=== PATIENT | female | born 1935 | race Caucasian/White ===

== ENCOUNTER 2017-04-09 08:55 | Emergency (ER) | payer MEDICARE, OTHER, SELFPAY ==
[2017-04-09 08:56] VITALS: BP 195/78; PULSE 99; RESP 17; TEMP 36.7; O2SAT 94; BMI 34.2
--- NOTE | 2017-04-09 09:08 | RAD_ITS ---
STUDY: X-RAY - LEFT FOOT CLINICAL: Female, 82 years old. Pain, injury TECHNIQUE: 3 view(s) of the foot. COMPARISON: Prior comparison studies are not available for review at this time. FINDINGS: There is a plantar calcaneal spur. Normal visualized subtalar, talonavicular, calcaneocuboid, tarsal and tarsometatarsal articulations. Closed comminuted mid distal fifth metatarsal fracture. Healed second metatarsal fracture. Normal metatarsophalangeal joint of the great toe. There is a bipartite tibial sesamoid. Normal interphalangeal joint of the great toe. Normal phalanges of the great toe. Normal second through fifth metatarsophalangeal joints. Normal interphalangeal joints and phalanges of the lesser toes. Mild lateral soft tissue swelling. RAD/Foot min 3 Views IMPRESSION: Closed comminuted fifth metatarsal fracture. Old healed second metatarsal fracture. Electronically Signed: Steven Younger DO at 9:32 EST , Service support ,
--- NOTE | 2017-04-09 09:30 | ED.VISSUMM ---
- ER Visit Summary Date of Service: 04/09/17 Chief Complaint: Left foot pain History of Present Illness: The patient is a [address] Rivera. She reports that she tripped over stuff in her room this morning and injured her left foot. She has pain Zeta 10 with walking 5 out of 10 at rest. She denies any other injuries. No blow to the head or loss of consciousness. She is not on any blood thinners. No neck, shoulder, wrist, hip, or back pain. Physical Examination: Vitals: Stable. Afebrile. Neck: No vertebral tenderness. Full ROM without difficulty. Cleared by NEXUS criteria. Back: No vertebral tenderness. General: A&O x 3. NAD. Cardiovascular exam: Regular rate and rhythm, no murmur, rub or gallop. Respiratory exam: Chest nontender. No crepitus. Clear to auscultation bilaterally. No wheezes or stridor. Abdominal exam: Soft, nontender, nondistended, normal bowel sounds. No pain in RUQ or LUQ specifically. No peritoneal signs. Extremity: Moderate tenderness palpation over the lateral portion of her foot. She has a 2+ dorsalis pedis pulse. Test Results: X-ray shows a proximal third fifth metatarsal fracture with minimal displacement. Emergency Department Course and Treatment: She refused pain medications. I do not think that she is a good candidate for splint and crutches. She was discussed with Dr. Awad and placed in a walking boot. Treatment Plan: She will be discharged with [place] and Colace. Instructed to follow-up with Dr. Awad in 1 week for another exam. Return to the emergency department for any worsening symptoms. Disposition: To home in improved and stable condition. Impression: 1. Left fifth metatarsal fracture. This note was generated with [employer] dictation software. It may contain incorrect words, spelling, and punctuation that were not noted in review of the chart prior to signing ED Disposition - Plan for ED Patient: Chief Complaint: Lower Extremity Injury Instructions: ED Fx Foot Prescriptions: Hydrocodone Bitart/Apap 5-325 [[place] 5/325] 1 - 2 tablet PO Q4H PRN PRN #20 tablet PRN Reason: Pain Docusate Sodium [Colace] 100 mg PO DAILY #20 capsule Walker [Ultra-Light Rollator] 1 each MC DAILY #1 each Referrals: Diony Awad DPM [STAFF PHYSICIAN] - 1 Week
--- NOTE | 2017-04-09 09:33 | ED.DCSUM_ITS ---
- ER Visit Summary Date of Service: 04/09/17 Chief Complaint: Left foot pain History of Present Illness: The patient is a [address] Rivera. She reports that she tripped over stuff in her room this morning and injured her left foot. She has pain Zeta 10 with walking 5 out of 10 at rest. She denies any other injuries. No blow to the head or loss of consciousness. She is not on any blood thinners. No neck, shoulder, wrist, hip, or back pain. Physical Examination: Vitals: Stable. Afebrile. Neck: No vertebral tenderness. Full ROM without difficulty. Cleared by NEXUS criteria. Back: No vertebral tenderness. General: A&O x 3. NAD. Cardiovascular exam: Regular rate and rhythm, no murmur, rub or gallop. Respiratory exam: Chest nontender. No crepitus. Clear to auscultation bilaterally. No wheezes or stridor. Abdominal exam: Soft, nontender, nondistended, normal bowel sounds. No pain in RUQ or LUQ specifically. No peritoneal signs. Extremity: Moderate tenderness palpation over the lateral portion of her foot. She has a 2+ dorsalis pedis pulse. Test Results: X-ray shows a proximal third fifth metatarsal fracture with minimal displacement. Emergency Department Course and Treatment: She refused pain medications. I do not think that she is a good candidate for splint and crutches. She was discussed with Dr. Awad and placed in a walking boot. Treatment Plan: She will be discharged with [place] and Colace. Instructed to follow-up with Dr. Awad in 1 week for another exam. Return to the emergency department for any worsening symptoms. Disposition: To home in improved and stable condition. Impression: 1. Left fifth metatarsal fracture. This note was generated with [employer] dictation software. It may contain incorrect words, spelling, and punctuation that were not noted in review of the chart prior to signing ED Disposition - Plan for ED Patient: Chief Complaint: Lower Extremity Injury Instructions: ED Fx Foot Prescriptions: Hydrocodone Bitart/Apap 5-325 [[place] 5/325] 1 - 2 tablet PO Q4H PRN PRN #20 tablet PRN Reason: Pain Docusate Sodium [Colace] 100 mg PO DAILY #20 capsule Walker [Ultra-Light Rollator] 1 each MC DAILY #1 each Referrals: Diony Awad DPM [STAFF PHYSICIAN] - 1 Week
== END 2017-04-09 10:10 | disposition home or self-care (01) ==
PROVIDERS: Emergency Provider Emergency Medicine; Family Provider Internal Medicine; PCP Internal Medicine
DX: S92.352A Displaced fracture of fifth metatarsal bone, left foot, initial encounter for closed fracture (principal); W22.8XXA Striking against or struck by other objects, initial encounter; Y93.9 Activity, unspecified; Y92.9 Unspecified place or not applicable; Y99.9 Unspecified external cause status; J44.9 Chronic obstructive pulmonary disease, unspecified; I10 Essential (primary) hypertension; M19.90 Unspecified osteoarthritis, unspecified site; Z79.899 Other long term (current) drug therapy
CPT/HCPCS: 73630; 99283

== ENCOUNTER → 2017-04-18 13:38 | Outpatient (CLI) | payer MEDICARE, OTHER, SELFPAY ==
[2017-04-18 15:36] LABS: Vitamin D,25 Hydroxy 23.5 ng/mL (19.95-100.01)
== END ==
PROVIDERS: Family Provider Internal Medicine; PCP Internal Medicine; Visit Provider Podiatrist
DX: E55.9 Vitamin D deficiency, unspecified (principal); S92.309A Fracture of unspecified metatarsal bone(s), unspecified foot, initial encounter for closed fracture; X58.XXXA Exposure to other specified factors, initial encounter; Y93.9 Activity, unspecified; Y92.9 Unspecified place or not applicable; Y99.9 Unspecified external cause status
CPT/HCPCS: 36415; 82306

== ENCOUNTER 2018-12-04 10:33 | Inpatient (IN) | payer MEDICARE, OTHER, SELFPAY ==
[2018-12-04] VITALS (16 sets, daily range): BP systolic 154–164; BP diastolic 50–71; PULSE 62–97; RESP 17–30; TEMP 36.3–36.6; O2SAT 77–967; BMI 33.2; BMI 31.8
--- NOTE | 2018-12-04 10:58 | RAD_ITS ---
STUDY: X-RAY CHEST REASON FOR EXAM: Female, 83 years old. Productive cough and wheezing. TECHNIQUE: AP and lateral views of the chest. COMPARISON: Comparison is made with prior study dated February 09, 2013. FINDINGS: EKG electrodes are seen. There is evidence of vascular congestion and mild degree of CHF. Small bilateral effusions. Normal size heart. Normal mediastinum and ara. Normal visualized pulmonary arteries. There is atherosclerotic calcification of the aortic arch with tortuosity. There is demineralization of the osseous structures. There is degenerative osteoarthritis of the bilateral shoulders. There is no demonstrated abnormality of the visualized soft tissue structures of the upper abdomen. RAD/Chest PA and Lateral IMPRESSION: Vascular congestion and CHF with small bilateral pleural effusions. Electronically Signed: Edi Hamilton, at 12:31 EDT , Service support ,
[2018-12-04] MEDS: Ipratropium/Albuterol Sulfate 3 ML AMPUL.NEB INHALATION ×2 (11:20→19:23)
[2018-12-04] MEDS: Albuterol 2.5 MG/3 ML VIAL.NEB. INHALATION ×4 (11:20→13:05)
[2018-12-04 12:03] LABS: Absolute Lymphocyte Count 0.75 X10^3/uL (0.83-4.51); Absolute Neutrophil Count 8.9 X10^3/uL (2.0-7.7); Basophil# 0.06 X10^3/uL; Basophil% 0.6 % (0-1); Eosinophil# 0.12 X10^3/uL; Eosinophils% 1.1 % (0-5); Hematocrit 32.3 % (37-47); Hemoglobin 9.7 g/dL (12.0-15.0); Lymphocyte # 0.75 X10^3/ul (4.0); Mean Corpuscular Hgb 31.3 pg (27.0-32.0); Mean Corpuscular Volume 104.2 fL (81-99); Monocyte# 0.88 X10^3/uL; Monocyte% 8.2 % (0-10); NRBC Flagged by Analyzer 0 % (0-5); Neutrophil # 8.94 X10^3/uL (2.7-7.7); Neutrophil % 82.7 % (47-70); Platelet Count 269 K/mm3 (150-450); RBC Distribution Width CV 13.6 % (11.6-14.6); White Blood Count 10.8 K/mm3 (4.4-11.0)
[2018-12-04 12:13] LABS: Anion Gap 6 (5-15); BUN 39 mg/dL (7-18); BUN/Creat Ratio 17.8 RATIO (10-20); Calcium,Total 8.6 mg/dL (8.5-10.1); Chloride 111 mmol/L (98-107); Creatinine, Serum 2.19 mg/dL (0.55-1.02); EST Glomerular Filtration Rate 23 mL/min (>60); Est Glom Filt Rate - Afr Amer 27 mL/min (>60); Estimated Creatinine Clearance 13.74 ml/min; Glucose 106 mg/dL (74-106); Potassium 5.5 mmol/L (3.5-5.1); Sodium Level 139 mmol/L (136-145)
--- NOTE | 2018-12-04 12:25 | ED.VIS.GEN ---
History of Present Illness Chief Complaint: Shortness of Breath Informant: Patient, Family Onset: Days Context: Gradual Onset Timing: Continuous Quality: Shortness of breath, dyspnea on exertion, productive cough Location: Respiratory Current Severity: Mild Maximum Severity: Severe Worsened by: Activity Relieved by: Nothing Associated Symptoms: White-colored sputum Narrative: Patient is an 83-year-old woman with history of COPD who quit smoking many years ago. She presents with productive cough. She normally does not have a productive cough. She denies fever, chills or night sweats. She denies runny nose, congestion or postnasal drainage. Denies sore throat. She denies chest pain of any type. She denies leg pain or discoloration. She does have complaint of swelling. She states been sitting more than normal. Furthermore she states the swelling is less in the morning. Prior similar symptoms: Yes Recent Illness/Hospitalization: No - Past Medical History (1) Anemia Status: Acute (2) Cerebral aneurysm Status: Acute (3) Renal insufficiency Status: Acute (4) COPD (chronic obstructive pulmonary disease) Status: Chronic (5) Carotid stenosis Status: Chronic (6) Depressive disorder Status: Chronic (7) Hyperlipidemia Status: Chronic (8) Hypertension Status: Chronic (9) Hypothyroidism Status: Chronic (10) Postmenopausal Status: Chronic Past Medical History - Allergies and Home Meds Allergies/Adverse Reactions: Allergies phenobarbital Allergy (Verified 12/04/18 10:34) Hives Primary Care Physician: Keely Rivera DO [Primary Care Provider] - Prior records reviewed: Yes Surgical History: noncontributory Lives: Alone Smoking Status: Former smoker Alcohol: None Drugs: None Review of Systems General: Reports: Chills, Fever, Subjective. Denies: Malaise, Sweats Eyes: Denies: Visual changes - bilaterally, Blurred Vision - bilaterally ENT: Denies: Bilateral ear pain, Rhinorrhea, Sore throat Cardiovascular: Denies: Chest pain, Palpitations, Heart racing Respiratory: Reports: Dyspnea, Cough, Sputum, Dyspnea on exertion. Denies: Orthopnea, Paroxysmal nocturnal dyspnea Gastrointestinal: Denies: Abdominal pain, Nausea, Vomiting, Diarrhea, Melena, Hematochezia Genitourinary: Denies: Dysuria, Hematuria, Frequency Musculoskeletal: Denies: Myalgias, Arthralgias, Neck pain, Back pain, Swelling, Extremity Pain, -, - Skin: Denies: Rash, Wounds Neurological: Reports: Weakness. Denies: Parasthesia, Numbness Psych: Reports: Depression Hematologic: Denies: Easy bruising, Easy bleeding Allergy: Denies: Uticaria, Swelling of the mouth Physical Exam Vital Signs/Narrative: Vital Signs Temp Pulse Resp BP Pulse Ox 12/04/18 10:34 97.7 F L 62 17 164/58 H 92 Inital Vital Signs reviewed: Yes General: Well nourished, Well developed, No Acute Distress Head: Normocephalic, Atraumatic Eyes: Perrl, EOMI ENT: Moist mucous membranes, No rhinorrhea Neck: Supple, Nontender Cardiovascular: Regular rate, Regular rhythm, No murmurs Respiratory: No distress - Forearm moving from bedside commode to bed cause significant dyspnea and pulse ox dropped to 71% on room air. She does wear oxygen at night only. She was in significant distress., Chest nontender, Wheezing, Diminished, Decreased Air Movement Abdomen: Soft, Nontender, Nondistended, Normal bowel sounds Back: Nontender, Normal Inspection Extremities: Nontender, No edema Skin: Normal color, No rash Neurological: Alert, Oriented x3, Cranial nerves II-XII grossly intact, Normal Strength, Normal Sensation Psychological: Normal affect, Normal Mood Diagnostic/Tx/Re-eval Chest X-Ray - ED: 2 View, Read by ED Physician, Unchanged, Normal, Heart, Mediastinum, Bony Structures, No Acute Disease, Chronic Changes, - - Small effusion noted. 12/04/18 10:58 Chest PA and Lateral [RAD] Stat Laboratory Results 12/04/18 12/04/18 11:50 11:50 WBC 10.8 RBC 3.10 L Hgb 9.7 L Hct 32.3 L MCV 104.2 H MCH 31.3 MCHC 30.0 L RDW Std Deviation 52.0 H RDW Coeff of Patrick 13.6 Plt Count 269 MPV 10.0 Immature Gran % (Auto) 0.400 Neut % (Auto) 82.7 H Lymph % (Auto) 7.0 L [place] % (Auto) 8.2 Eos % (Auto) 1.1 Baso % (Auto) 0.6 Absolute Neuts (auto) 8.9 H Absolute Lymphs (auto) 0.75 L Nucleated RBC % 0 Sodium 139 Potassium 5.5 H Chloride 111 H Carbon Dioxide 22.0 Anion Gap 6 BUN 39 H Creatinine 2.19 H Estim Creat Clear Calc 13.74 Est GFR (MDRD) Af Amer 27 L Est GFR (MDRD) Non-Af 23 L BUN/Creatinine Ratio 17.8 Glucose 106 Calcium 8.6 Count is normal. Differential is normal. Basic metabolic panel is remarkable for an elevated BUN and creatinine. Will review old records to determine if this is new or chronic. Chest x-ray interpreted by me reveals no significant interval change from 2013. There was no lateral that time. The lateral view is limited because of limited duration. There is increased markings in the retrocardiac space. Prior to contact hospitalist radiology report was read. Patient does not have findings consistent with congestive heart failure. She has findings of exacerbation COPD. Because she became hypoxic with minimal activity as fourth aerosol was ordered and 125 mg Solu-Medrol. Since she has a productive cough, which is not normal for her she was administered p.o. antibiotics, doxycycline 100 mg. There is acute on chronic renal insufficiency/failure. Patient's case was discussed with hospitalist and she will be a full admission to PCU ED Disposition - Plan for ED Patient: Diagnosis: COPD with acute exacerbation, Hypoxia, Acute on chronic renal failure Referrals: Keely Rivera DO [Primary Care Provider] -
--- NOTE | 2018-12-04 12:45 | ED.RN ---
PT UP TO BED SIDE COMMODE. WHILE AMBULATING BACK TO BED PT SAT DROPPED DOCUMENTED. PT PLACED ON 3 L NC AT THAT TIME AND PT CONDITION VERBALLY COMMUNICATED TO DR. MONTERO. PT SAT WNL ON 3L O2.
[2018-12-04] MEDS: MethylPREDNISolone 125 MG/2 ML Vial IV (12:54)
--- NOTE | 2018-12-04 13:59 | NURSING ---
DR GUERRERO FOR DR MONTERO
--- NOTE | 2018-12-04 14:01 | NURSING ---
PCU COPD EXAC , HYPOXIA, ACUTE ON CHRONIC RENAL FAILURE TOMELFAH
[2018-12-04] MEDS: Doxycycline 100 MG CAPSULE PO (14:13)
--- NOTE | 2018-12-04 14:40 | HP.PCM_ITS ---
Problem List (1) Stage III chronic kidney disease Status: Chronic (2) Chronic anemia Status: Chronic (3) Cerebral aneurysm Status: Chronic (4) Depressive disorder Status: Chronic (5) Hypothyroidism Status: Chronic (6) Hyperlipidemia Status: Chronic (7) Hypertension Status: Chronic (8) Chronic respiratory failure Status: Chronic (9) COPD (chronic obstructive pulmonary disease) Status: Chronic History of Present Illness Date of Admission: 12/04/18 Chief Complaint: Worsening shortness of breath. The patient is a 83 year old F with multiple medical comorbidities as mentioned above presented to the emergency room because of worsening shortness of breath. Patient asked me to talk to her daughter who lives with her and her daughter provided the history. According to the patient's daughter, patient has been having worsening shortness of breath over the last 3 days, has been exertional initially and progressed and patient has been short of breath even at rest, associated with productive cough with clear sputum as well as wheezing, aggravated by activity and no relieving factors. Patient's daughter mentioned that her mother has been using nebulizer treatment at home but in the last 3 days, it has not been helping and she continued to be short of breath even at rest. The patient mentioned that she has been having this chronic cough with clear sputum and she thinks it is not getting any worse than usual. Patient thinks that only her shortness of breath is getting worse and she reported associated wheezing as well. Patient's daughter mentioned that her mother supposed to be on oxygen at night at 2 L but she is not compliant with it. Also, patient's daughter mentioned that her mother's PCP requested that she should see a certified physical therapist assistant but patient refused. Patient denied chest pain, palpitation, dizziness or lightheadedness. She denied fever or chills. In the emergency department, she was afebrile, heart rate stable, blood pressure slightly elevated, initial pulse ox was 92% on room air and with ambulation, it came down to 77% on room air. Patient required up to 3 L of oxygen. Her rout ine blood work was remarkable for hemoglobin of 9.7 g/dL, potassium 5.5, BUN of 39, creatinine is 2.19. Chest x-ray revealed cardiomegaly, bilateral pulmonary vascular congestion with fluid on the right fissure, small bilateral pleural effusion more on the right side. She is being admitted for acute on chronic hypoxic respiratory failure which is probably multifactorial secondary to COPD exacerbation as well as probable acute CHF and also found to have hyperkalemia and NIRMALA on CKD. Past Medical History Past Medical History (Chronic Problems): Chronic Problems (Last Updated 12/04/18 @ 14:40 by Sergio Zurita MD) Stage III chronic kidney disease (Chronic) Chronic anemia (Chronic) Vitamin D deficiency, unspecified (Chronic) Cerebral aneurysm (Chronic) Carotid stenosis (Chronic) Cataract (Chronic) Depressive disorder (Chronic) Atherosclerosis of aorta (Chronic) Memory loss (Chronic) Osteoporosis (Chronic) Obesity (Chronic) Hypothyroidism (Chronic) Hyperlipidemia (Chronic) Hypertension (Chronic) Chronic respiratory failure (Chronic) COPD (chronic obstructive pulmonary disease) (Chronic) Medical History: Medical History (Last Updated 12/04/18 @ 14:40 by Sergio Zurita MD) Vitamin D deficiency, unspecified (Chronic) E55.9 Cerebral aneurysm (Chronic) I67.1 Carotid stenosis (Chronic) I65.29 Cataract (Chronic) H26.9 Depressive disorder (Chronic) F32.9 Atherosclerosis of aorta (Chronic) I70.0 Memory loss (Chronic) R41.3 Osteoporosis (Chronic) M81.0 Obesity (Chronic) E66.9 Hypothyroidism (Chronic) E03.9 Hyperlipidemia (Chronic) E78.5 Hypertension (Chronic) I10 Chronic respiratory failure (Chronic) J96.10 COPD (chronic obstructive pulmonary disease) (Chronic) J44.9 Allergies phenobarbital Allergy (Verified 12/04/18 10:34) Hives Home Medications: Ambulatory Orders Medication Instructions Recorded Lovastatin [Mevacor] 40 mg PO DAILY 02/09/13 Metoprolol(XL)Succ [Toprol Xl 100 mg PO DAILY 02/09/13 (Beta Pedro)] hydrochlorothiazide 12.5 mg capsule 12.5 mg PO DAILY 02/07/18 levothyroxine 75 mcg tablet 75 mcg PO MOTUWETHFRSA 02/07/18 Amlodipine Besylate 10 mg PO DAILY 12/04/18 Surgical History: - - Clipping of brain aneurysm. Psychiatric History: No pertinent psych hx EX ASSISTANT/PROGRAM DIRECTOR History: No pertinent EX ASSISTANT/PROGRAM DIRECTOR history Lives: With Family Smoking Status: Former smoker Alcohol: None Drugs: None - *Family History Maternal Family History: Family History (Last Updated 02/07/18 @ 11:13 by Cecy Lyman) Mother Breast cancer CAD (coronary artery disease) CHF (congestive heart failure) Myocardial infarction Father Multiple sclerosis AA (aortic aneurysm) History Items: No pertinent history Paternal Family History: Family History (Last Updated 02/07/18 @ 11:13 by Cecy Lyman) Mother Breast cancer CAD (coronary artery disease) CHF (congestive heart failure) Myocardial infarction Father Multiple sclerosis AA (aortic aneurysm) History Items: No pertinent history Review of Systems Constitutional: Reports: Anorexia, Weakness. Denies: Chills, Fever Eyes: Denies: Blurred vision, Double vision, Drainage, Redness HEENT: Denies: Difficulty Hearing, Ear Pain, Eye Pain, Nasal Congestion, Sore Throat Cardiovascular: Reports: Edema. Denies: Chest Pain, Chest Pressure, Chest Tightness, Heaviness, Light Headedness, Orthopnea, Palpitations, Paroxysmal Noc. Dyspnea, Syncope Respiratory: Reports: Cough, Shortness of Breath, Shortness of breath at rest, Shortness of breath upon exertion, Sputum production, Wheezing. Denies: Hemoptysis Gastrointestinal: Denies: Abdominal Pain, Constipation, Diarrhea, Nausea, Vomiting Genitourinary: Denies: Dysuria, Frequency, Hematuria Musculoskeletal: Denies: Arm Pain, Back Pain, Foot Pain Skin: Denies: Dryness, Rash Neurological: Denies: Balance problems, Double vision, Change in Speech, Slurred speech, Confusion, Headaches, Incoordination, Numbness Psychiatric: Reports: Depression. Denies: Anxiety Endocrine: Denies: Change in Body Habitus, Polydipsia, Polyuria VTE Information - Inpt Only VTE Present on Admission: No VTE Mechan Device Prophylaxis: None VTE Pharm Prophylaxis ordered?: Yes Patient Problems: Active and Suspected Problems (Last Updated 12/04/18 @ 14:40 by Sergio Zurita MD) Hypoxia (Acute) - Physical Exam General: Alert, Oriented x3, Cooperative, - - Moderately short of breath. HEENT: Atraumatic, PERRLA, EOMI, Normocephalic Oral: Moist Mucosa, No Gingival or Mucosal Lesions/ Ulcerations Neck: Supple, No JVD, Negative Carotid Bruits, Trachea Midline, Thyroid Normal Size and Texture Lungs: - - Markedly decreased breath sounds, occasional wheezes, bilateral basilar crackles. Cardiovascular: Regular rate, Regular Rhythm, Normal S1, Normal S2, PMI Normal Abdomen: Bowel Sounds Present, Soft, Non Tender, Non-Distended, No Hepato-splenomegaly, Obese Extremities: No clubbing, No cyanosis, Edema - Nonpitting edema. Skin: No rashes, No breakdown Lymphatic: No Cervical, Supraclavicular, or Inguinal Adenopathy Neurological: Cranial nerves II-XII grossly intact, Motor Exam 5/5 strength throughout Psych/Mental Status: Normal Affect, Appropriate, Alert and oriented to time, place, person, mood and affect Vital Signs Temp Pulse Resp BP Pulse Ox 97.7 F L 71 26 H 164/58 H 94 12/04/18 10:34 12/04/18 14:14 12/04/18 14:14 12/04/18 10:34 12/04/18 14:14 Oxygen Flow Rate (L/min) 3 Oxygen Delivery Method Nasal Cannula Weight: 170 lb Body Mass Index (BMI) 33.2 Laboratory Tests Past 24 Hrs 12/04/18 12/04/18 11:50 11:50 WBC 10.8 RBC 3.10 L Hgb 9.7 L Hct 32.3 L MCV 104.2 H MCH 31.3 MCHC 30.0 L RDW Std Deviation 52.0 H RDW Coeff of Patrick 13.6 Plt Count 269 MPV 10.0 Immature Gran % (Auto) 0.400 Neut % (Auto) 82.7 H Lymph % (Auto) 7.0 L [place] % (Auto) 8.2 Eos % (Auto) 1.1 Baso % (Auto) 0.6 Absolute Neuts (auto) 8.9 H Absolute Lymphs (auto) 0.75 L Nucleated RBC % 0 Sodium 139 Potassium 5.5 H Chloride 111 H Carbon Dioxide 22.0 Anion Gap 6 BUN 39 H Creatinine 2.19 H Estim Creat Clear Calc 13.74 Est GFR (MDRD) Af Amer 27 L Est GFR (MDRD) Non-Af 23 L BUN/Creatinine Ratio 17.8 Glucose 106 Calcium 8.6 Clinical Impression(s) from Imaging Studies Chest X-Ray 12/04/18 10:58 IMPRESSION: Vascular congestion and CHF with small bilateral pleural effusions. Electronically Signed: Edi Hamilton, at 12:31 EDT , Service support , Assessment/Plan All Active Problems (Last Updated 12/04/18 @ 14:40 by Sergio Zurita MD) Hypoxia (Acute) This is an 83 years old female patient presented to the emergency room because of worsening shortness of breath with productive cough with white sputum, found to have hypoxia and her pulse ox was 77% on room air on ambulation and she is being admitted for acute on chronic hypoxic respiratory failure due to acute COPD exacerbation in addition to probable acute CHF. #1 acute on chronic hypoxic respiratory failure: due to acute severe exacerbation in addition to probable acute CHF. Patient is on home oxygen at night at 2 L but she is noncompliant according to her daughter. Chest x-ray reviewed as above, revealed bilateral pulmonary vascular congestion and cardiomegaly. Based on her symptoms, she does have COPD exacerbation. She denies orthopnea PND, reported leg edema. She denied cardiac history. Plan: Admit to PCU, cardiac monitoring, troponin x1, EKG, bronchodilators, start IV Lasix, chest physiotherapy, incentive spirometer, check BNP, TSH, repeat CBC and BMP tomorrow morning, PT OT evaluation and treatment. #2 acute COPD exacerbation: Based on his symptoms of worsening shortness of breath, productive cough with white sputum and wheezing. Could be superimposed by CHF as above. Plan: DuoNeb every 4 hours, albuterol as needed, IV Solu- Medrol, sputum culture, chest physiotherapy, incentive spirometer. #3 probable acute CHF, likely diastolic: This is based on her long-term history of COPD in addition to leg edema and chest x-ray findings. Patient could have pulmonary hypertension. Plan: Start IV Lasix, 2D echocardiogram, check TSH, check troponin and BNP. #4 acute kidney injury on top of stage III chronic kidney disease/mild hyperkalemia: Baseline creatinine has been around 1.4 to 1.7 mg/dL. Admission creatinine is 2.19. Potassium is 5.5, no EKG change related to hyperkalemia. Plan: IV Lasix, Kayexalate x1, repeat BMP tomorrow morning #5 history of cerebral aneurysm, status post clipping, stable, no acute issues. #6 COPD/chronic respiratory failure: On home oxygen at 2 L at night but she is noncompliant. At this time, pulse ox was 77% on room air with ambulation and she is requiring up to 3 L. Plan as above, bronchodilators, IV steroids, diuresis. #7 chronic anemia: It is microcytic anemia. Baseline hemoglobin has been around 9 to 10 g/dL, admission hemoglobin is 9.7 g/dL. Plan: Iron studies, ferritin, TIBC, B12, folate. #8 hypertension: Blood pressure slightly elevated, continue Norvasc, continue metoprolol, hold HCTZ, start IV hydralazine PRN. #9 hypothyroidism: Continue with digoxin, will check TSH. #10 DVT prophylaxis: Subcu heparin. #11 CODE STATUS: Full code. Discussed the CODE STATUS with the patient and she mentioned that she wants everything to be done including CPR, intubation and mechanical ventilation. This note was generated with eOriginal dictation software. It may contain incorrect words, spelling, and punctuation that were not noted in checking the note before signing. Code Visit Inpatient E&M: 39748 Init Hosp L3
--- NOTE | 2018-12-04 15:01 | ECHOD_ITS ---
Reason For Study: CHF Procedure This was a 2D Doppler, Color Flow transthoracic echocardiogram. The study was technically difficult. Exam performed portable in patient room. Left Ventricle Normal LV size. Left ventricular systolic function is normal. The estimated ejection fraction is 60 %. No evidence for diastolic dysfunction. No regional wall motion abnormalities noted. Right Ventricle Normal RV size. Normal systolic function. Atria The left atrium is moderately enlarged. The right atrium is mildly enlarged. No doppler evidence for ASD. Mitral Valve There is mild mitral annular calcification. Moderate focal mitral valve calcification of the anterior leaflet. Mild (1+) mitral valve insufficiency. Tricuspid Valve Normal tricuspid valve. Mild tricuspid valve insufficiency. Right ventricular systolic pressure estimated to be 53 mmHg. Aortic Valve Trisinus/trileaflet aortic valve. Mild diffuse aortic valve calcification. Moderate aortic stenosis. Trivial aortic valve insufficiency. Pulmonic Valve The pulmonic valve is not well visualized. Great Vessels Normal sized aortic root. Pericardium/Pleural No pericardial effusion. MMode/2D Measurements & Calculations LVIDd: 3.9 cm IVSd: 1.2 cm LVOT diam: 2.0 cm LVIDs: 2.4 cm LVPWd: 1.1 cm LVOT area: 3.3 cm2 RVDd: 4.2 cm FS: 37.4 % Ao root diam: 3.0 cm LAV(MOD-bp): 77.5 ml LA A4 area: 25.1 cm2 LA dimension: 4.1 cm LAV(MOD-bp) Indexed: 45.3 ml/m2 LAV(MOD-sp2): 76.3 ml LAV(MOD-sp4): 76.0 ml RA A4 area: 26.0 cm2 Time Measurements MV dec time: 0.15 sec Doppler Measurements & Calculations MV E max kenney: 110.5 cm/sec Lat Peak E' Kenney: 10.6 cm/sec MV V2 max: 137.0 cm/sec MV A max kenney: 126.2 cm/sec E/E' lat: 10.4 MV max P.5 mmHg MV E/A: 0.88 MV V2 mean: 84.1 cm/sec MV mean P.4 mmHg MV V2 VTI: 28.3 cm MVA(VTI): 2.2 cm2 MV P1/2t max kenney: 133.8 cm/sec Ao V2 max: 342.3 cm/sec AI max kenney: 357.0 cm/sec MV P1/2t: 50.0 msec Ao max P.9 mmHg AI max P.0 mmHg Ao V2 mean: 218.9 cm/sec MV dec slope: 783.3 cm/sec2 Ao mean P.1 mmHg AI dec slope: 313.3 cm/sec2 MVA(P1/2t): 4.4 cm2 Ao V2 VTI: 79.0 cm AI P1/2t: 333.7 msec CHRYSTAL(I,D): 0.79 cm2 CHRYSTAL(V,D): 0.91 cm2 LV V1 max: 96.2 cm/sec SV(LVOT): 62.6 ml PA V2 max: 92.0 cm/sec LV V1 max P.7 mmHg LV V1 mean P.7 mmHg LV V1 mean: 58.9 cm/sec LV V1 VTI: 19.2 cm TR max kenney: 353.7 cm/sec TR max P.1 mmHg Interpretation Summary The study was technically difficult. Left ventricular systolic function is normal. The estimated ejection fraction is 60 %. The left atrium is moderately enlarged. The right atrium is mildly enlarged. There is mild mitral annular calcification. Moderate focal mitral valve calcification of the anterior leaflet. Mild (1+) mitral valve insufficiency. Mild tricuspid valve insufficiency. Moderate aortic stenosis. Trivial aortic valve insufficiency. Right ventricular systolic pressure estimated to be 53 mmHg. No evidence for diastolic dysfunction. Ordering Physician: Sergio Zurita Referring Physician: Keely Rivera Performed By: Arvind Perez RCS
--- NOTE | 2018-12-04 15:01 | EKG12_ITS ---
Test Reason : ADMISSION Blood Pressure : / mmHG Vent. Rate : 077 BPM Atrial Rate : 077 BPM P-R Int : 292 ms QRS Dur : 080 ms QT Int : 388 ms P-R-T Axes : 089 058 059 degrees QTc Int : 439 ms Sinus rhythm with 1st degree A-V block Otherwise normal ECG When compared with ECG of 10-MAY-2016 14:00, Premature ventricular complexes are no longer Present Nonspecific T wave abnormality no longer evident in Lateral leads Confirmed by LEOPOLDO CURRAN, CHRISTY ([id number]), slot editor ARIA ROBLES ([id number]) on 12/08/2018 10:34:24 A M Referred By: ADRIENNE Confirmed By:RIA MINA MD
[2018-12-04 15:57] LABS: Prothrombin Time (Protime)PT. 13.1 SECONDS (11.7-14.9)
[2018-12-04 16:01] LABS: BNP,B-Type NATRIURETIC PEPTIDE 1608.1 pg/mL (0-100); Thyroid Stim Hormone (TSH) 1.67 uIU/mL (0.358-3.74)
[2018-12-04 16:32] LABS: Ferritin 203 ng/mL (8-252); Iron 41 ug/dL (50-170); Iron Binding Capacity,Total 343 ug/dL (250-450)
[2018-12-04 16:56] LABS: Vitamin B12 426 pg/mL (211-911)
[2018-12-04] MEDS: Sodium Polystyrene Sulfonate 15 GM/60 ML UDC PO (17:00)
[2018-12-04] MEDS: Furosemide 40 MG/4 ML Vial IV (17:00)
[2018-12-04] MEDS: Atorvastatin Calcium 10 MG Tablet PO (21:43)
[2018-12-04] MEDS: Heparin Injection (Vial) 5,000 UNIT/ML VIAL 5000 UNIT SC (21:44)
[2018-12-04] MEDS: 0.9% NaCl Peripheral Flush Adult/Peds IV (21:48)
[2018-12-04 23:10] LABS: Potassium 4.8 mmol/L (3.5-5.1)
[2018-12-04] MEDS: Acetaminophen 325 MG Tablet 650 MG PO (23:32)
[2018-12-04 23:40] LABS: Mucous, Urine 0 SEEN /hpf (<or=2+); Red Blood Cells-Urine 0 SEEN /hpf (0-5); White Blood Cells 0 SEEN /hpf (0-5)
[2018-12-05] VITALS (16 sets, daily range): BP systolic 118–171; BP diastolic 51–76; PULSE 75–99; RESP 16–20; TEMP 36.4–36.7; O2SAT 92–97
[2018-12-05 00:01] LABS: Color, Urine Straw (Yellow); Glucose, Dipstick Normal (Normal); Ketone-Dipstick Negative (Negative); Leukocyte Esterase-Dipstick Negative /ul (Negative); Nitrite-Dipstick Negative (Negative); Occult Blood-Urine Negative /ul (Negative); Protein-Dipstick 30 mg/dl (Negative); Urine Bilirubin Dipstick Negative (Negative); Urine Clarity Clear (Clear); Urine Urobilinogen Normal (Normal)
[2018-12-05 00:09] LABS: Bacteria RARE /hpf (None Seen); Squamous Epithelial Cells - UA 0-5 SEEN /hpf (5-10)
[2018-12-05] MEDS: Levothyroxine 75 MCG Tablet PO (05:15)
[2018-12-05] MEDS: Heparin Injection (Vial) 5,000 UNIT/ML VIAL 5000 UNIT SC ×3 (05:19→21:50)
[2018-12-05] MEDS: Acetaminophen 325 MG Tablet 650 MG PO (06:55)
[2018-12-05] MEDS: Ipratropium/Albuterol Sulfate 3 ML AMPUL.NEB INHALATION ×3 (07:31→14:22)
[2018-12-05 07:49] LABS: Absolute Lymphocyte Count 0.45 X10^3/uL (0.83-4.51); Basophil# 0.01 X10^3/uL; Basophil% 0.1 % (0-1); Hematocrit 32.7 % (37-47); Lymphocyte # 0.45 X10^3/ul (4.0); Lymphocyte % 5.9 % (19-41); Mean Corp Hgb Conc 30.6 g/dL (32-36); Mean Corpuscular Hgb 31.7 pg (27.0-32.0); Mean Corpuscular Volume 103.8 fL (81-99); Mean Platelet Vol. 10.4 fl (6.2-12.0); Monocyte# 0.18 X10^3/uL; Monocyte% 2.3 % (0-10); NRBC Flagged by Analyzer 0 % (0-5); POSITIVE DIFFERENTIAL YES; POSITIVE MORPHOLOGY YES; Platelet Count 284 K/mm3 (150-450); RBC Distribution Width CV 13.5 % (11.6-14.6); RBC Distribution Width SD 51.2 fl (35.1-43.9); Red Blood Count 3.15 M/mm3 (4.2-5.4); White Blood Count 7.7 K/mm3 (4.4-11.0)
[2018-12-05 08:17] LABS: Differential Comment SCANNED
[2018-12-05 08:22] LABS: Anion Gap 9 (5-15); BUN 39 mg/dL (7-18); BUN/Creat Ratio 18.8 RATIO (10-20); Calcium,Total 8.6 mg/dL (8.5-10.1); Chloride 111 mmol/L (98-107); Creatinine, Serum 2.07 mg/dL (0.55-1.02); EST Glomerular Filtration Rate 24 mL/min (>60); Est Glom Filt Rate - Afr Amer 29 mL/min (>60); Estimated Creatinine Clearance 14.53 ml/min; Glucose 155 mg/dL (74-106); Potassium 4.7 mmol/L (3.5-5.1); Sodium Level 142 mmol/L (136-145)
[2018-12-05] MEDS: Furosemide 40 MG/4 ML Vial IV ×2 (09:57→17:23)
[2018-12-05] MEDS: Metoprolol(XL)Succ 100 MG Tablet PO (09:57)
[2018-12-05] MEDS: 0.9% NaCl Peripheral Flush Adult/Peds IV ×2 (09:57→21:50)
[2018-12-05] MEDS: amLODIPine 10 MG Tablet PO (09:57)
--- NOTE | 2018-12-05 12:01 | PCM.PN.HOSP ---
Patient Problems: Active and Suspected Problems (Last Updated 12/04/18 @ 14:40 by Sergio Zurita MD) Hypoxia (Acute) Subjective: CC: CHF Patient is an 83-year-old lady admitted with progressive shortness of breath with associated active cough. Chest x-ray obtained on admission demonstrated Vascular congestion and CHF with small bilateral pleural effusions. Objective: GENERAL: cooperative HEENT: Atraumatic; EYES; Anicteric, Normal Conjunctiva NECK; supple, normal thyroid, RESPIRATORY: Diminished to auscultation bilaterally, CARDIOVASCULAR: Regular S1 S2, GI: soft, non-tender, normoactive bowel sounds, : No Renal angle tenderness; EXTREMITIES: Trace edema, no clubbing, n MUSCULOSKELETAL: No Joint Tenderness; NEURO: Awake; no lateralizing signs. SKIN: No Rash PSYCH; Normal affect Vitals/I&O's: Vital Signs Temp Pulse Resp BP Pulse Ox 97.7 F L 99 16 171/76 H 97 12/05/18 08:00 12/05/18 11:12 12/05/18 11:10 12/05/18 08:00 12/05/18 08:00 Oxygen Flow Rate (L/min) 2 Oxygen Delivery Method Nasal Cannula Weight: 73.981 kg Body Mass Index (BMI) 31.8 Intake and Output for Last 24 Hours 12/03/18 12/04/18 12/05/18 23:59 23:59 23:59 Intake Total 460 / 460 240 / 240 Output Total 875 / 875 750 / 750 Balance -415 / -415 -510 / -510 Laboratory Results 12/04/18 11:50: WBC 10.8, RBC 3.10 L, Hgb 9.7 L, Hct 32.3 L, MCV 104.2 H, MCH 31.3, MCHC 30.0 L, RDW Std Deviation 52.0 H, RDW Coeff of Patrick 13.6, Plt Count 269, MPV 10.0, Immature Gran % (Auto) 0.400, Neut % (Auto) 82.7 H, Lymph % (Auto) 7.0 L, Major % (Auto) 8.2, Eos % (Auto) 1.1, Baso % (Auto) 0.6, Absolute Neuts (auto) 8.9 H, Absolute Lymphs (auto) 0.75 L, Nucleated RBC % 0 12/04/18 11:50: Sodium 139, Potassium 5.5 H, Chloride 111 H, Carbon Dioxide 22.0, Anion Gap 6, BUN 39 H, Creatinine 2.19 H, Estim Creat Clear Calc 13.74, Est GFR (MDRD) Af Amer 27 L, Est GFR (MDRD) Non-Af 23 L, BUN/Creatinine Ratio 17.8, Glucose 106, Calcium 8.6 12/04/18 15:25: Troponin I < 0.015, TSH 1.67 12/04/18 15:25: B-Natriuretic Peptide 1608.1 H 12/04/18 15:25: PT 13.1, INR 1.0 12/04/18 15:25: Iron 41 L, TIBC 343, Iron Saturation 12.0 L, Ferritin 203 12/04/18 15:25: Vitamin B12 426 12/04/18 20:05: Urine Color Straw, Urine Clarity Clear, Urine pH 6.0, Ur Specific [place] 1.010, Urine Protein 30 H, Urine Glucose (UA) Normal, Urine Ketones Negative, Urine Occult Blood Negative, Urine Nitrite Negative, Urine Bilirubin Negative, Urine Urobilinogen Normal, Ur Leukocyte Esterase Negative, Urine RBC 0 SEEN, Urine WBC 0 SEEN, Ur Squamous Epith Cells 0-5 SEEN, Urine Bacteria RARE, Urine Mucus 0 SEEN 12/04/18 22:28: Potassium 4.8 12/04/18 22:28: RBC Folate Hemolysate Pending, RBC Folate Pending, Hematocrit Pending 12/05/18 07:10: WBC 7.7, RBC 3.15 L, Hgb 10.0 L, Hct 32.7 L, MCV 103.8 H, MCH 31.7, MCHC 30.6 L, RDW Std Deviation 51.2 H, RDW Coeff of Patrick 13.5, Plt Count 284, MPV 10.4, Immature Gran % (Auto) 0.700, Neut % (Auto) 91.0 H, Lymph % (Auto) 5.9 L, Major % (Auto) 2.3, Eos % (Auto) 0.0, Baso % (Auto) 0.1, Absolute Neuts (auto) 7.0, Absolute Lymphs (auto) 0.45 L, Nucleated RBC % 0, Differential Comment SCANNED 12/05/18 07:10: Sodium 142, Potassium 4.7, Chloride 111 H, Carbon Dioxide 22.0, Anion Gap 9, BUN 39 H, Creatinine 2.07 H, Estim Creat Clear Calc 14.53, Est GFR (MDRD) Af Amer 29 L, Est GFR (MDRD) Non-Af 24 L, BUN/Creatinine Ratio 18.8, Glucose 155 H, Calcium 8.6 Current Medications Acetaminophen (Tylenol) 650 mg PO Q6H PRN PRN PRN Reason: Mild pain 1-3/Temp > 100.7 F Last Admin: 12/05/18 06:55 Dose: 650 mg Documented by: Albuterol Sulfate (Ventolin Aerosols) 2.5 mg INHALATION Q2H PRN PRN PRN Reason: SOB/Wheezing Albuterol/Ipratropium (Duoneb) 3 ml INHALATION Q4HWA.RT [facility] Last Admin: 12/05/18 11:10 Dose: 3 ml Documented by: Amlodipine Besylate (Norvasc) 10 mg PO DAILY [facility] Last Admin: 12/05/18 09:57 Dose: 10 mg Documented by: Atorvastatin Calcium (Lipitor) 10 mg PO QHS [facility] Last Admin: 12/04/18 21:43 Dose: 10 mg Documented by: Furosemide (Lasix) 40 mg IV BID@1000,1800 [facility] Last Admin: 12/05/18 09:57 Dose: 40 mg Documented by: Heparin Sodium (Porcine) (Heparin Na) 5,000 unit SC Q8 [facility] Last Admin: 12/05/18 05:19 Dose: 5,000 unit Documented by: Sodium Chloride () 250 mls @ 15 mls/hr IV .[id number] PRN PRN Reason: SALINE FLUSH Levothyroxine Sodium (Synthroid) 75 mcg PO MOTUWETHFRSA [facility] Last Admin: 12/05/18 05:15 Dose: 75 mcg Documented by: Methylprednisolone (Solu-Medrol) 40 mg IV Q8 [facility] Last Admin: 12/05/18 05:15 Dose: 40 mg Documented by: Metoprolol Succinate (Toprol Xl (Beta Pedro)) 100 mg PO DAILY [facility] Last Admin: 12/05/18 09:57 Dose: 100 mg Documented by: Nutritional Formula (Lactose Free) (Ensure Enlive) 120 ml PO 4X/DAY [facility] Last Admin: 12/05/18 09:57 Dose: 120 ml Documented by: Ondansetron HCl (Zofran) 4 mg IV Q8H PRN PRN PRN Reason: NAUSEA/VOMITING Sodium Chloride () 10 - 40 ml IV UD PRN PRN Reason: SALINE FLUSH Last Admin: 12/05/18 09:57 Dose: 10 ml Documented by: Medical Necessity - Tobacco Use Smoking Status: Former smoker Tobacco Use: Cigarettes Assessment/Plan All Active Problems (Last Updated 12/04/18 @ 14:40 by Sergio Zurita MD) Hypoxia (Acute) Patient is an 83-year-old lady admitted with progressive shortness of breath with associated active cough. Chest x-ray obtained on admission demonstrated Vascular congestion and CHF with small bilateral pleural effusions. 1. Acute on chronic hypoxic respiratory failure secondary to acute CHF. ~ Chest x-ray obtained on admission demonstrated vascular congestion with small bilateral pleural effusion management is a treatment of the underlying etiology that is congestive heart failure 2. Acute congestive heart failure probable diastolic dysfunction. ~Patient has been admitted to a monitored bed, placed on strict input and output, fluid restriction Daily weights as well as IV Lasix. Echo ordered for EF assessment 3. COPD with acute exacerbation ~did continue with aerosol treatment in addition to Solu-Medrol 4. Chronic hypoxic respiratory failure secondary to COPD ~patient is on home oxygen 2 L at night 5. Acute kidney injury ~suspected to be secondary to hypoperfusion from CHF do expect improvement with treatment of patient underlying congestive heart failure 6. Chronic kidney disease stage III with baseline creatinine of 1.4-1.7 ~Presented with worsening of kidney function. Consultation placed to nephrology 7. Anemia; microcytic anemia ~ Suspected to be secondary to anemia of inflammation. Monitoring H&H with plans to transfuse if hemoglobin falls below 7 or patient becomes symptomatic 8. Essential hypertension ~Patient blood pressure on admission was elevated Home medications continued added PRN hydralazine 9. Hypothyroidism ~patient is on levothyroxine home dose continued 10. Obesity with BMI of 31.9 ?Weight loss advised 12. Dyslipidemia -patient is on statin therapy, continued at home dose 11. DVT prophylaxis SC heparin Active Medications Acetaminophen (Tylenol) 650 mg PO Q6H PRN PRN PRN Reason: Mild pain 1-3/Temp > 100.7 F Last Admin: 12/05/18 06:55 Dose: 650 mg Documented by: Albuterol Sulfate (Ventolin Aerosols) 2.5 mg INHALATION Q2H PRN PRN PRN Reason: SOB/Wheezing Albuterol/Ipratropium (Duoneb) 3 ml INHALATION Q4HWA.RT [facility] Last Admin: 12/05/18 11:10 Dose: 3 ml Documented by: Amlodipine Besylate (Norvasc) 10 mg PO DAILY [facility] Last Admin: 12/05/18 09:57 Dose: 10 mg Documented by: Atorvastatin Calcium (Lipitor) 10 mg PO QHS [facility] Last Admin: 12/04/18 21:43 Dose: 10 mg Documented by: Furosemide (Lasix) 40 mg IV BID@1000,1800 [facility] Last Admin: 12/05/18 09:57 Dose: 40 mg Documented by: Heparin Sodium (Porcine) (Heparin Na) 5,000 unit SC Q8 [facility] Last Admin: 12/05/18 05:19 Dose: 5,000 unit Documented by: Sodium Chloride () 250 mls @ 15 mls/hr IV .[id number] PRN PRN Reason: SALINE FLUSH Levothyroxine Sodium (Synthroid) 75 mcg PO MOTUWETHFRSA [facility] Last Admin: 12/05/18 05:15 Dose: 75 mcg Documented by: Methylprednisolone (Solu-Medrol) 40 mg IV Q8 [facility] Last Admin: 12/05/18 05:15 Dose: 40 mg Documented by: Metoprolol Succinate (Toprol Xl (Beta Pedro)) 100 mg PO DAILY [facility] Last Admin: 12/05/18 09:57 Dose: 100 mg Documented by: Nutritional Formula (Lactose Free) (Ensure Enlive) 120 ml PO 4X/DAY [facility] Last Admin: 12/05/18 09:57 Dose: 120 ml Documented by: Ondansetron HCl (Zofran) 4 mg IV Q8H PRN PRN PRN Reason: NAUSEA/VOMITING Sodium Chloride () 10 - 40 ml IV UD PRN PRN Reason: SALINE FLUSH Last Admin: 12/05/18 09:57 Dose: 10 ml Documented by: Clinical Impression(s) from Imaging Studies Chest X-Ray 12/04/18 10:58 IMPRESSION: Vascular congestion and CHF with small bilateral pleural effusions. Electronically Signed: Edi Hamilton, at 12:31 EDT , Service support , Code Visit Inpatient E&M: 62293 Subs Hosp L3
--- NOTE | 2018-12-05 12:24 | CASEMGMT ---
RN CM Assessment Presentation: COPD Exacerbation, possible acute CHF Intro role of CM and purpose of RN CM assessment to patient and her daughter. Demographics, PCP and Pharmacy verified. Pt lives with her daughter who assists with any care needs and transportation. Plan is for pt to return home to daughter's house. PCP: Dr. Keely Rivera Pharmacy: [facility] Insurance: [facility] Prescription Benefit: yes LNOK: Daughter, Antonia Tolentino Living Arrangements: Lives in one story home, 4 steps into home with handrails. Pt is generally independent, but daughter is available to assist if needed. Transportation: daughter drives DME: Pt does not have ambulatory DME. Physical Therapist recommending wheeled walker. DME companies discussed with daughter. She prefers [employer] for walker. - Has nebulizer and oxygen 2L NC @ night. Not sure of company. Called to locate where pt has oxygen. [employer]-is supplier for home oxygen. Script is for 2l NC @ home. Has concentrator, no portability. If continuous O2 is needed, will need to have updated testing and script. HHC: Recommending Home Health on dc. List of Home Health companies given to daughter to review. Patient DC goals: Home with daughter DC PLAN: Home with [facility]. Will need home oxygen testing if remains on O2. Daughter is deciding on [facility] company.
--- NOTE | 2018-12-05 17:08 | CHAPLAIN ---
Type of Pastoral Visit _x__ Initial Visit ___ Follow-up Visit ___ On-call Visit ___ General Patient Visit ___ Spiritual Assessment ___ Family Conference ___ Bereavement ___ Rapid Response ___ Code Blue ___ Other (describe below) Pastoral Care Referral From _x__ Patient ___ Family ___ Nurse ___ Physician ___ [employer] Software Engineer ___ [employer] Director ___ Other (describe below) Sacrament/Intervention _x__ Active listening ___ Anointing ___ Tenriism ___ Bereavement ___ Communion ___ Bianka exploration ___ ___ Life review _x__ Prayer ___ Reconciliation ___ Sacrament of Sick ___ Supportive presence ___ Wedding ___ Other (describe below) Pastoral Comments
[2018-12-05] MEDS: Atorvastatin Calcium 10 MG Tablet PO (21:50)
[2018-12-06] VITALS (20 sets, daily range): BP systolic 117–151; BP diastolic 49–77; PULSE 67–88; RESP 14–18; TEMP 36.4–36.7; O2SAT 90–97
[2018-12-06] MEDS: Heparin Injection (Vial) 5,000 UNIT/ML VIAL 5000 UNIT SC ×3 (05:44→22:02)
[2018-12-06] MEDS: Levothyroxine 75 MCG Tablet PO (05:45)
[2018-12-06] MEDS: 0.9% NaCl Peripheral Flush Adult/Peds IV ×2 (05:45→22:02)
[2018-12-06] MEDS: Ipratropium/Albuterol Sulfate 3 ML AMPUL.NEB INHALATION ×4 (06:38→18:44)
--- NOTE | 2018-12-06 07:38 | PCM.PN.HOSP ---
Patient Problems: Active and Suspected Problems (Last Updated 12/04/18 @ 14:40 by Sergio Zurita MD) Hypoxia (Acute) Subjective: CC congestive heart failure Patient breathing status improved with diuresis her kidney function however did worsen with BUN bumping up from 39-64 [place] [address].64. Case discussed with family consultation placed to nephrology Objective: GENERAL: cooperative HEENT: Atraumatic; EYES; Anicteric, Normal Conjunctiva NECK; supple, normal thyroid, RESPIRATORY: Diminished to auscultation bilaterally, CARDIOVASCULAR: Regular S1 S2, GI: soft, non-tender, normoactive bowel sounds, : No Renal angle tenderness; EXTREMITIES: Trace edema, no clubbing, n MUSCULOSKELETAL: No Joint Tenderness; NEURO: Awake; no lateralizing signs. SKIN: No Rash PSYCH; Normal affect Vitals/I&O's: Vital Signs Temp Pulse Resp BP Pulse Ox 97.5 F L 87 18 135/68 H 97 12/06/18 03:45 12/06/18 06:38 12/06/18 06:38 12/06/18 03:45 12/06/18 06:38 Oxygen Flow Rate (L/min) 2 Oxygen Delivery Method Nasal Cannula Weight: 73.981 kg Body Mass Index (BMI) 31.8 Intake and Output for Last 24 Hours 12/04/18 12/05/18 12/06/18 23:59 23:59 23:59 Intake Total 460 / 460 670 / 670 / Output Total 875 / 875 750 / 750 Balance -415 / -415 -80 / -80 Laboratory Results 12/05/18 07:10: WBC 7.7, RBC 3.15 L, Hgb 10.0 L, Hct 32.7 L, MCV 103.8 H, MCH 31.7, MCHC 30.6 L, RDW Std Deviation 51.2 H, RDW Coeff of Patrick 13.5, Plt Count 284, MPV 10.4, Immature Gran % (Auto) 0.700, Neut % (Auto) 91.0 H, Lymph % (Auto) 5.9 L, [place] % (Auto) 2.3, Eos % (Auto) 0.0, Baso % (Auto) 0.1, Absolute Neuts (auto) 7.0, Absolute Lymphs (auto) 0.45 L, Nucleated RBC % 0, Differential Comment SCANNED 12/05/18 07:10: Sodium 142, Potassium 4.7, Chloride 111 H, Carbon Dioxide 22.0, Anion Gap 9, BUN 39 H, Creatinine 2.07 H, Estim Creat Clear Calc 14.53, Est GFR (MDRD) Af Amer 29 L, Est GFR (MDRD) Non-Af 24 L, BUN/Creatinine Ratio 18.8, Glucose 155 H, Calcium 8.6 Current Medications Acetaminophen (Tylenol) 650 mg PO Q6H PRN PRN PRN Reason: Mild pain 1-3/Temp > 100.7 F Last Admin: 12/05/18 06:55 Dose: 650 mg Documented by: Albuterol Sulfate (Ventolin Aerosols) 2.5 mg INHALATION Q2H PRN PRN PRN Reason: SOB/Wheezing Albuterol/Ipratropium (Duoneb) 3 ml INHALATION Q4HWA.RT [facility] Last Admin: 12/06/18 06:38 Dose: 3 ml Documented by: Amlodipine Besylate (Norvasc) 10 mg PO DAILY [facility] Last Admin: 12/05/18 09:57 Dose: 10 mg Documented by: Atorvastatin Calcium (Lipitor) 10 mg PO QHS [facility] Last Admin: 12/05/18 21:50 Dose: 10 mg Documented by: Furosemide (Lasix) 40 mg IV BID@1000,1800 [facility] Last Admin: 12/05/18 17:23 Dose: 40 mg Documented by: Heparin Sodium (Porcine) (Heparin Na) 5,000 unit SC Q8 [facility] Last Admin: 12/06/18 05:44 Dose: 5,000 unit Documented by: Sodium Chloride () 250 mls @ 15 mls/hr IV .[id number] PRN PRN Reason: SALINE FLUSH Levothyroxine Sodium (Synthroid) 75 mcg PO MOTUWETHFRSA [facility] Last Admin: 12/06/18 05:45 Dose: 75 mcg Documented by: Methylprednisolone (Solu-Medrol) 40 mg IV Q8 [facility] Last Admin: 12/06/18 05:45 Dose: 40 mg Documented by: Metoprolol Succinate (Toprol Xl (Beta Pedro)) 100 mg PO DAILY [facility] Last Admin: 12/05/18 09:57 Dose: 100 mg Documented by: Nutritional Formula (Lactose Free) (Ensure Enlive) 120 ml PO 4X/DAY [facility] Last Admin: 12/05/18 21:44 Dose: Not Given Documented by: Ondansetron HCl (Zofran) 4 mg IV Q8H PRN PRN PRN Reason: NAUSEA/VOMITING Sodium Chloride () 10 - 40 ml IV UD PRN PRN Reason: SALINE FLUSH Last Admin: 12/06/18 05:45 Dose: 20 ml Documented by: Medical Necessity - Tobacco Use Smoking Status: Former smoker Tobacco Use: Cigarettes Assessment/Plan All Active Problems (Last Updated 12/04/18 @ 14:40 by Sergio Zurita MD) Hypoxia (Acute) Patient is an 83-year-old lady admitted with progressive shortness of breath with associated active cough. Chest x-ray obtained on admission demonstrated Vascular congestion and CHF with small bilateral pleural effusions. 1. Acute on chronic hypoxic respiratory failure secondary to acute CHF. ~ Chest x-ray obtained on admission demonstrated vascular congestion with small bilateral pleural effusion management is a treatment of the underlying etiology that is congestive heart failure 2. Acute congestive heart failure with preserved ejection fraction. ~Patient has been admitted to a monitored bed, placed on strict input and output, fluid restriction Daily weights as well as IV Lasix. Echo ordered for EF assessment ?12/06/2018: Patient breathing status improved with diuresis her kidney function however worsening of patient kidney function dose of Lasix was adjusted. Echo demonstrated EF of 60% with RVSP of 53 mmHg 3. Acute kidney injury ~Recent kidney function initially did improve with diuresis however worsened overnight necessitating adjustment of Lasix dose in consultation being placed to nephrology. 4. COPD with acute exacerbation ~did continue with aerosol treatment in addition to Solu-Medrol ?12/06/2018 improved clinically 5. Chronic hypoxic respiratory failure secondary to COPD ~patient is on home oxygen 2 L at night 6. Chronic kidney disease stage III with baseline creatinine of 1.4-1.7 ~Presented with worsening of kidney function. Consultation placed to nephrology 7. Anemia; microcytic anemia ~ Suspected to be secondary to anemia of inflammation. Monitoring H&H with plans to transfuse if hemoglobin falls below 7 or patient becomes symptomatic 8. Essential hypertension ~Patient blood pressure on admission was elevated Home medications continued added PRN hydralazine 9. Hypothyroidism ~patient is on levothyroxine home dose continued 10. Obesity with BMI of 31.9 ?Weight loss advised 12. Dyslipidemia -patient is on statin therapy, continued at home dose 11. DVT prophylaxis SC heparin Advance planning; did discuss with the patient and son regarding advanced directives as well as CODE STATUS. Did explain the various scenarios involved ( FULL CODE, DNR CCA, DNR CCA with no intubation, and DNR CC and what each meant) patient elected to remain full code (with intubation as well as CPR if warranted. Order was placed. Time spent on discussion 20 minutes. Active Medications Acetaminophen (Tylenol) 650 mg PO Q6H PRN PRN PRN Reason: Mild pain 1-3/Temp > 100.7 F Last Admin: 12/05/18 06:55 Dose: 650 mg Documented by: Albuterol Sulfate (Ventolin Aerosols) 2.5 mg INHALATION Q2H PRN PRN PRN Reason: SOB/Wheezing Albuterol/Ipratropium (Duoneb) 3 ml INHALATION Q4HWA.RT [facility] Last Admin: 12/05/18 11:10 Dose: 3 ml Documented by: Amlodipine Besylate (Norvasc) 10 mg PO DAILY [facility] Last Admin: 12/05/18 09:57 Dose: 10 mg Documented by: Atorvastatin Calcium (Lipitor) 10 mg PO QHS [facility] Last Admin: 12/04/18 21:43 Dose: 10 mg Documented by: Furosemide (Lasix) 40 mg IV BID@1000,1800 [facility] Last Admin: 12/05/18 09:57 Dose: 40 mg Documented by: Heparin Sodium (Porcine) (Heparin Na) 5,000 unit SC Q8 [facility] Last Admin: 12/05/18 05:19 Dose: 5,000 unit Documented by: Sodium Chloride () 250 mls @ 15 mls/hr IV .[id number] PRN PRN Reason: SALINE FLUSH Levothyroxine Sodium (Synthroid) 75 mcg PO MOTUWETHFRSA [facility] Last Admin: 12/05/18 05:15 Dose: 75 mcg Documented by: Methylprednisolone (Solu-Medrol) 40 mg IV Q8 [facility] Last Admin: 12/05/18 05:15 Dose: 40 mg Documented by: Metoprolol Succinate (Toprol Xl (Beta Pedro)) 100 mg PO DAILY [facility] Last Admin: 12/05/18 09:57 Dose: 100 mg Documented by: Nutritional Formula (Lactose Free) (Ensure Enlive) 120 ml PO 4X/DAY [facility] Last Admin: 12/05/18 09:57 Dose: 120 ml Documented by: Ondansetron HCl (Zofran) 4 mg IV Q8H PRN PRN PRN Reason: NAUSEA/VOMITING Sodium Chloride () 10 - 40 ml IV UD PRN PRN Reason: SALINE FLUSH Last Admin: 12/05/18 09:57 Dose: 10 ml Documented by: Clinical Impression(s) from Imaging Studies Chest X-Ray 12/04/18 10:58 IMPRESSION: Vascular congestion and CHF with small bilateral pleural effusions. Electronically Signed: Edi Chadwickbrandon, at 12:31 EDT , Service support , Reason For Study: CHF Procedure This was a 2D Doppler, Color Flow transthoracic echocardiogram. The study was technically difficult. Exam performed portable in patient room. Left Ventricle Normal LV size. Left ventricular systolic function is normal. The estimated ejection fraction is 60 %. No evidence for diastolic dysfunction. No regional wall motion abnormalities noted. Right Ventricle Normal RV size. Normal systolic function. Atria The left atrium is moderately enlarged. The right atrium is mildly enlarged. No doppler evidence for ASD. Mitral Valve There is mild mitral annular calcification. Moderate focal mitral valve calcification of the anterior leaflet. Mild (1+) mitral valve insufficiency. Tricuspid Valve Normal tricuspid valve. Mild tricuspid valve insufficiency. Right ventricular systolic pressure estimated to be 53 mmHg. Aortic Valve Trisinus/trileaflet aortic valve. Mild diffuse aortic valve calcification. Moderate aortic stenosis. Trivial aortic valve insufficiency. Pulmonic Valve The pulmonic valve is not well visualized. Great Vessels Normal sized aortic root. Pericardium/Pleural No pericardial effusion. MMode/2D Measurements & Calculations LVIDd: 3.9 cm IVSd: 1.2 cm LVOT diam: 2.0 cm LVIDs: 2.4 cm LVPWd: 1.1 cm LVOT area: 3.3 cm2 RVDd: 4.2 cm FS: 37.4 % Ao root diam: 3.0 cm LAV(MOD-bp): 77.5 ml LA A4 area: 25.1 cm2 LA dimension: 4.1 cm LAV(MOD-bp) Indexed: 45.3 ml/m2 LAV(MOD-sp2): 76.3 ml LAV(MOD-sp4): 76.0 ml RA A4 area: 26.0 cm2 Time Measurements MV dec time: 0.15 sec Doppler Measurements & Calculations MV E max kenney: 110.5 cm/sec Lat Peak E' Kenney: 10.6 cm/sec MV V2 max: 137.0 cm/sec MV A max kenney: 126.2 cm/sec E/E' lat: 10.4 MV max P.5 mmHg MV E/A: 0.88 MV V2 mean: 84.1 cm/sec MV mean P.4 mmHg MV V2 VTI: 28.3 cm MVA(VTI): 2.2 cm2 MV P1/2t max kenney: 133.8 cm/sec Ao V2 max: 342.3 cm/sec AI max kenney: 357.0 cm/sec MV P1/2t: 50.0 msec Ao max P.9 mmHg AI max P.0 mmHg Ao V2 mean: 218.9 cm/sec MV dec slope: 783.3 cm/sec2 Ao mean P.1 mmHg AI dec slope: 313.3 cm/sec2 MVA(P1/2t): 4.4 cm2 Ao V2 VTI: 79.0 cm AI P1/2t: 333.7 msec CHRYSTAL(I,D): 0.79 cm2 CHRYSTAL(V,D): 0.91 cm2 LV V1 max: 96.2 cm/sec SV(LVOT): 62.6 ml PA V2 max: 92.0 cm/sec LV V1 max P.7 mmHg LV V1 mean P.7 mmHg LV V1 mean: 58.9 cm/sec LV V1 VTI: 19.2 cm TR max kenney: 353.7 cm/sec TR max P.1 mmHg Interpretation Summary The study was technically difficult. Left ventricular systolic function is normal. The estimated ejection fraction is 60 %. The left atrium is moderately enlarged. The right atrium is mildly enlarged. There is mild mitral annular calcification. Moderate focal mitral valve calcification of the anterior leaflet. Mild (1+) mitral valve insufficiency. Mild tricuspid valve insufficiency. Moderate aortic stenosis. Trivial aortic valve insufficiency. Right ventricular systolic pressure estimated to be 53 mmHg. No evidence for diastolic dysfunction. Code Visit Inpatient E&M: 48499 Subs Hosp L2 Procedures: 57443 Advncd Care Plan 30 Min
[2018-12-06 08:23] LABS: Absolute Lymphocyte Count 0.41 X10^3/uL (0.83-4.51); Absolute Neutrophil Count 14.3 X10^3/uL (2.0-7.7); Basophil# 0.02 X10^3/uL; Basophil% 0.1 % (0-1); Hematocrit 31.6 % (37-47); Hemoglobin 9.9 g/dL (12.0-15.0); Lymphocyte # 0.41 X10^3/ul (4.0); Lymphocyte % 2.7 % (19-41); Mean Corp Hgb Conc 31.3 g/dL (32-36); Mean Corpuscular Hgb 32.6 pg (27.0-32.0); Mean Corpuscular Volume 103.9 fL (81-99); Mean Platelet Vol. 10.2 fl (6.2-12.0); Monocyte# 0.54 X10^3/uL; Monocyte% 3.5 % (0-10); NRBC Flagged by Analyzer 0 % (0-5); Neutrophil # 14.32 X10^3/uL (2.7-7.7); Neutrophil % 93.1 % (47-70); POSITIVE DIFFERENTIAL YES; Platelet Count 293 K/mm3 (150-450); RBC Distribution Width CV 13.4 % (11.6-14.6); RBC Distribution Width SD 51.2 fl (35.1-43.9); Red Blood Count 3.04 M/mm3 (4.2-5.4); White Blood Count 15.4 K/mm3 (4.4-11.0)
[2018-12-06 08:25] LABS: Differential Indicated SCAN CRITERIA MET
[2018-12-06 08:50] LABS: Anion Gap 9 (5-15); BUN 64 mg/dL (7-18); BUN/Creat Ratio 23.9 RATIO (10-20); Calcium,Total 8.5 mg/dL (8.5-10.1); Chloride 108 mmol/L (98-107); Creatinine, Serum 2.68 mg/dL (0.55-1.02); EST Glomerular Filtration Rate 18 mL/min (>60); Est Glom Filt Rate - Afr Amer 22 mL/min (>60); Estimated Creatinine Clearance 11.22 ml/min; Glucose 170 mg/dL (74-106); Magnesium 1.9 mg/dL (1.6-2.6); Potassium 4.4 mmol/L (3.5-5.1); Sodium Level 140 mmol/L (136-145)
[2018-12-06] MEDS: amLODIPine 10 MG Tablet PO (10:20)
[2018-12-06] MEDS: Metoprolol(XL)Succ 100 MG Tablet PO (10:20)
[2018-12-06] MEDS: Furosemide 20 MG Tablet PO ×2 (10:25→16:57)
[2018-12-06] MEDS: Acetaminophen 325 MG Tablet 650 MG PO ×2 (10:26→16:24)
--- NOTE | 2018-12-06 11:32 | CASEMGMT ---
SW spoke w/pt and son in room, asked pt and son if pt has POA forms to have family bring them in as they are not on file here. Son states that daughter would likely know and have them. SW asked son to ask daughter to bring in copies of the forms as able for the hospital to put on file here. Son states understanding. SADIQ Mccabe
--- NOTE | 2018-12-06 13:07 | PCM.CONS.R ---
Problem List (1) Stage III chronic kidney disease Status: Chronic Consultation - Renal 12/06/18 PCP/ Referring MD: Requesting physician: Dr Figueroa Primary care physician: Keely Rivera DO Reason for Consultation:: NIRMALA - History of Present Illness History of Present Illness: The patient is a 83 year old F admitted to hospital 2 days ago with dyspnea. CXR was consistent with fluid overload. was given IV lasix and she improved symptomatically. Cr is increased to 2.6 today. doesnt offer any complaints today - Allergies Allergies: Allergies phenobarbital Allergy (Verified 12/04/18 10:34) Hives - Current Medications Current Medications: Current Medications Acetaminophen (Tylenol) 650 mg PO Q6H PRN PRN PRN Reason: Mild pain 1-3/Temp > 100.7 F Last Admin: 12/06/18 10:26 Dose: 650 mg Documented by: Albuterol Sulfate (Ventolin Aerosols) 2.5 mg INHALATION Q2H PRN PRN PRN Reason: SOB/Wheezing Albuterol/Ipratropium (Duoneb) 3 ml INHALATION Q4HWA.RT [facility] Last Admin: 12/06/18 11:10 Dose: 3 ml Documented by: Amlodipine Besylate (Norvasc) 10 mg PO DAILY [facility] Last Admin: 12/06/18 10:20 Dose: 10 mg Documented by: Atorvastatin Calcium (Lipitor) 10 mg PO QHS [facility] Last Admin: 12/05/18 21:50 Dose: 10 mg Documented by: Furosemide (Lasix) 20 mg PO BID@1000,1800 [facility] Last Admin: 12/06/18 10:25 Dose: 20 mg Documented by: Heparin Sodium (Porcine) (Heparin Na) 5,000 unit SC Q8 [facility] Last Admin: 12/06/18 05:44 Dose: 5,000 unit Documented by: Sodium Chloride () 250 mls @ 15 mls/hr IV .[id number] PRN PRN Reason: SALINE FLUSH Levothyroxine Sodium (Synthroid) 75 mcg PO MOTUWETHFRSA [facility] Last Admin: 12/06/18 05:45 Dose: 75 mcg Documented by: Methylprednisolone (Solu-Medrol) 40 mg IV Q8 [facility] Last Admin: 12/06/18 05:45 Dose: 40 mg Documented by: Metoprolol Succinate (Toprol Xl (Beta Pedro)) 100 mg PO DAILY [facility] Last Admin: 12/06/18 10:20 Dose: 100 mg Documented by: Nutritional Formula (Lactose Free) (Ensure Enlive) 120 ml PO 4X/DAY [facility] Last Admin: 12/06/18 10:21 Dose: Not Given Documented by: Ondansetron HCl (Zofran) 4 mg IV Q8H PRN PRN PRN Reason: NAUSEA/VOMITING Sodium Chloride () 10 - 40 ml IV UD PRN PRN Reason: SALINE FLUSH Last Admin: 12/06/18 05:45 Dose: 20 ml Documented by: - Past Medical History Past Medical History (Chronic Problems): Chronic Problems (Last Updated 12/04/18 @ 14:40 by Sergio Zurita MD) Stage III chronic kidney disease (Chronic) Chronic anemia (Chronic) Vitamin D deficiency, unspecified (Chronic) Cerebral aneurysm (Chronic) Carotid stenosis (Chronic) Cataract (Chronic) Depressive disorder (Chronic) Atherosclerosis of aorta (Chronic) Memory loss (Chronic) Osteoporosis (Chronic) Obesity (Chronic) Hypothyroidism (Chronic) Hyperlipidemia (Chronic) Hypertension (Chronic) Chronic respiratory failure (Chronic) COPD (chronic obstructive pulmonary disease) (Chronic) - Past Surgical History Surgical History: - - Clipping of brain aneurysm. - Social History Smoking Status: Former smoker Alcohol: None Drugs: None - Family History Maternal Family History: Family History (Last Updated 02/07/18 @ 11:13 by Cecy Lyman) Mother Breast cancer CAD (coronary artery disease) CHF (congestive heart failure) Myocardial infarction Father Multiple sclerosis AA (aortic aneurysm) History Items: No pertinent history Paternal Family History: Family History (Last Updated 02/07/18 @ 11:13 by Cecy Lyman) Mother Breast cancer CAD (coronary artery disease) CHF (congestive heart failure) Myocardial infarction Father Multiple sclerosis AA (aortic aneurysm) History Items: No pertinent history Review of Systems Constitutional: Denies: Chills, Fever, Weight Change HEENT: Denies: Head Aches, Sinus Congestion, Sinus Drainage Cardiovascular: Denies: Chest Pain, Palpitations Respiratory: Denies: Cough, Shortness of breath at rest, Sputum production Gastrointestinal: Denies: Abdominal Pain, Nausea, Vomiting Genitourinary: Denies: Dysuria Musculoskeletal: Denies: Joint Pain, Joint Tenderness Skin: Denies: Rash, Wounds Neurological: Denies: Numbness, Tingling, Focal weakness Psychiatric: Denies: Anxiety, Depression, Homicidal Ideations, Suicidal Ideations Hematologic/ Lymphatic: Denies: Easy Bruising, Easy Bleeding Patient Problems: Active and Suspected Problems (Last Updated 12/04/18 @ 14:40 by Sergio Zurita MD) Hypoxia (Acute) - Physical Exam General: Alert, Oriented x3, Cooperative HEENT: Atraumatic, PERRLA, EOMI, Normocephalic Neck: Supple, No JVD, Negative Carotid Bruits Lungs: Clear to auscultation, Normal air movement Cardiovascular: Regular rate, No murmurs Abdomen: Bowel Sounds Present, Soft, Non Tender Extremities: No edema, Capillary Refill Less than 3 Seconds Skin: No rashes, No breakdown Musculoskeletal: No Tenderness to Palpation of Joints or Extremities Neurological: Cranial nerves II-XII grossly intact Psych/Mental Status: Normal Affect, Appropriate Vital Signs Temp Pulse Resp BP Pulse Ox 97.6 F L 81 16 151/77 H 93 12/06/18 09:39 12/06/18 11:36 12/06/18 11:10 12/06/18 09:39 12/06/18 10:46 Oxygen Flow Rate (L/min) 2 Oxygen Delivery Method Room Air Weight: 73.981 kg Body Mass Index (BMI) 31.8 Intake and Output for Last 24 Hours 12/04/18 12/05/18 12/06/18 23:59 23:59 23:59 Intake Total 460 / 460 670 / 670 270 / 270 Output Total 875 / 875 750 / 750 Balance -415 / -415 -80 / -80 270 / 270 Laboratory Tests Past 24 Hrs 12/06/18 12/06/18 08:15 08:15 WBC 15.4 H RBC 3.04 L Hgb 9.9 L Hct 31.6 L MCV 103.9 H MCH 32.6 H MCHC 31.3 L RDW Std Deviation 51.2 H RDW Coeff of Patrick 13.4 Plt Count 293 MPV 10.2 Immature Gran % (Auto) 0.600 Neut % (Auto) 93.1 H Lymph % (Auto) 2.7 L [place] % (Auto) 3.5 Eos % (Auto) 0.0 Baso % (Auto) 0.1 Absolute Neuts (auto) 14.3 H Absolute Lymphs (auto) 0.41 L Nucleated RBC % 0 Differential Comment COMMENT Sodium 140 Potassium 4.4 Chloride 108 H Carbon Dioxide 23.0 Anion Gap 9 BUN 64 H Creatinine 2.68 H Estim Creat Clear Calc 11.22 Est GFR (MDRD) Af Amer 22 L Est GFR (MDRD) Non-Af 18 L BUN/Creatinine Ratio 23.9 H Glucose 170 H Calcium 8.5 Magnesium 1.9 Assessment/Plan All Active Problems (Last Updated 12/04/18 @ 14:40 by Sergio Zurita MD) Hypoxia (Acute) NIRMALA CKD 3 reviewed prior records. She has known history of CKD with baseline creatinine around 2.0 or so. admitted with similar numbers and higher today UA is benign denies any obstructive symptoms. will check post void bladder scan BP is ok Rise in creatinine is likely related to diuretics lasix has been cut down if cr stable of better tomorrow can be discharged will arrange follow up in office
--- NOTE | 2018-12-06 14:15 | CASEMGMT ---
This RN CM to room to f/u with pt/family regarding possible HHC at discharge. Pt's daughter is at bedside. Pt/daughter decline HHC at this time and want to wait until pt's at home to see if she needs any further resources. Pt/daughter aware that they can call PCP once home to get order for any further therapy, voice understanding. Pt did not qualify for home oxygen at this time and is aware. Pt did have WW script faxed to [facility] previously and this RN CM will try to have WW delivered to hospital prior to pt discharge. Pt/daughter express gratitude to this RN CM at this time. Call to Jeanne at [facility] and she states that WW will be delivered tomorrow am. Romero CARLISLE CM
--- NOTE | 2018-12-06 16:00 | NURSING ---
When this RN went to administer scheduled 1400 solu-medrol and heparin, Patients daughter stated that the clinical nursing coordinator was recently at the bedside and administered the same medications. Neither medication had been documented on on the EMAR. Medications were NOT administered and then wasted per policy. Students were not present on the floor for clarification, foundry finisher informed.
--- NOTE | 2018-12-06 16:12 | NURSING ---
This RN will be taking over pt care at this time.
[2018-12-06] MEDS: Atorvastatin Calcium 10 MG Tablet PO (22:02)
--- NOTE | 2018-12-06 22:53 | CPS ---
patient placed on 2 lpm for night time use.
[2018-12-07] VITALS (14 sets, daily range): BP systolic 95–156; BP diastolic 49–64; PULSE 77–88; RESP 16–18; TEMP 36.4–36.7; O2SAT 92–98
[2018-12-07] MEDS: 0.9% NaCl Peripheral Flush Adult/Peds IV ×4 (05:31→21:16)
[2018-12-07] MEDS: Levothyroxine 75 MCG Tablet PO (05:32)
[2018-12-07] MEDS: Heparin Injection (Vial) 5,000 UNIT/ML VIAL 5000 UNIT SC ×3 (05:32→21:15)
[2018-12-07 06:43] LABS: Absolute Lymphocyte Count 0.53 X10^3/uL (0.83-4.51); Absolute Neutrophil Count 13.9 X10^3/uL (2.0-7.7); Basophil# 0.01 X10^3/uL; Basophil% 0.1 % (0-1); Hematocrit 30.6 % (37-47); Hemoglobin 9.5 g/dL (12.0-15.0); Lymphocyte # 0.53 X10^3/ul (4.0); Lymphocyte % 3.5 % (19-41); Mean Corpuscular Hgb 31.5 pg (27.0-32.0); Mean Corpuscular Volume 101.3 fL (81-99); Mean Platelet Vol. 10.4 fl (6.2-12.0); Monocyte# 0.68 X10^3/uL; Monocyte% 4.4 % (0-10); NRBC Flagged by Analyzer 0 % (0-5); Neutrophil % 90.8 % (47-70); POSITIVE DIFFERENTIAL YES; Platelet Count 297 K/mm3 (150-450); RBC Distribution Width CV 13.2 % (11.6-14.6); RBC Distribution Width SD 49.3 fl (35.1-43.9); Red Blood Count 3.02 M/mm3 (4.2-5.4); White Blood Count 15.3 K/mm3 (4.4-11.0)
[2018-12-07 06:48] LABS: Differential Indicated SCAN CRITERIA MET
[2018-12-07] MEDS: Ipratropium/Albuterol Sulfate 3 ML AMPUL.NEB INHALATION ×4 (06:56→19:49)
[2018-12-07 07:06] LABS: Anion Gap 10 (5-15); BUN 82 mg/dL (7-18); BUN/Creat Ratio 28.6 RATIO (10-20); Calcium,Total 8.5 mg/dL (8.5-10.1); Chloride 105 mmol/L (98-107); Creatinine, Serum 2.87 mg/dL (0.55-1.02); EST Glomerular Filtration Rate 17 mL/min (>60); Est Glom Filt Rate - Afr Amer 20 mL/min (>60); Estimated Creatinine Clearance 10.48 ml/min; Glucose 142 mg/dL (74-106); Sodium Level 139 mmol/L (136-145)
[2018-12-07] MEDS: Acetaminophen 325 MG Tablet 650 MG PO ×2 (07:58→21:15)
[2018-12-07] MEDS: 0.9% Normal Saline 1,000 ML 75 ML IV ×2 (07:59→21:20)
[2018-12-07] MEDS: amLODIPine 10 MG Tablet PO (09:33)
[2018-12-07] MEDS: Metoprolol(XL)Succ 100 MG Tablet PO (09:33)
--- NOTE | 2018-12-07 10:10 | PN_ITS ---
Patient Problems: Active and Suspected Problems (Last Updated 12/04/18 @ 14:40 by Sergio Zurita MD) Hypoxia (Acute) Subjective: CC: CHF, renal failure Patient seen breathing significantly improved however kidney function did worsen with BUN up to 82 and creatinine 2.87. Lasix discontinued started on IV fluid. Patient was also seen in consultation by nephrology today prior Vitals/I&O's: Vital Signs Temp Pulse Resp BP Pulse Ox 98.0 F 80 16 156/64 H 92 12/07/18 09:28 12/07/18 09:33 12/07/18 09:28 12/07/18 09:33 12/07/18 09:28 Oxygen Flow Rate (L/min) 2 Oxygen Delivery Method Room Air Weight: 73.981 kg Body Mass Index (BMI) 31.8 Intake and Output for Last 24 Hours 12/05/18 12/06/18 12/07/18 23:59 23:59 23:59 Intake Total 670 / 670 450 / 450 Output Total 750 / 750 500 / 500 Balance -80 / -80 450 / 450 -500 / -500 Laboratory Results 12/07/18 06:20: WBC 15.3 H, RBC 3.02 L, Hgb 9.5 L, Hct 30.6 L, MCV 101.3 H, MCH 31.5, MCHC 31.0 L, RDW Std Deviation 49.3 H, RDW Coeff of Patrick 13.2, Plt Count 297, MPV 10.4, Immature Gran % (Auto) 1.200 H, Neut % (Auto) 90.8 H, Lymph % (Auto) 3.5 L, [place] % (Auto) 4.4, Eos % (Auto) 0.0, Baso % (Auto) 0.1, Absolute Neuts (auto) 13.9 H, Absolute Lymphs (auto) 0.53 L, Nucleated RBC % 0 12/07/18 06:20: Sodium 139, Potassium 5.0, Chloride 105, Carbon Dioxide 24.0, Anion Gap 10, BUN 82 H, Creatinine 2.87 H, Estim Creat Clear Calc 10.48, Est GFR (MDRD) Af Amer 20 L, Est GFR (MDRD) Non-Af 17 L, BUN/Creatinine Ratio 28.6 H, Glucose 142 H, Calcium 8.5 Current Medications Acetaminophen (Tylenol) 650 mg PO Q6H PRN PRN PRN Reason: Mild pain 1-3/Temp > 100.7 F Last Admin: 12/07/18 07:58 Dose: 650 mg Documented by: Albuterol Sulfate (Ventolin Aerosols) 2.5 mg INHALATION Q2H PRN PRN PRN Reason: SOB/Wheezing Albuterol/Ipratropium (Duoneb) 3 ml INHALATION Q4HWA.RT [facility] Last Admin: 12/07/18 06:56 Dose: 3 ml Documented by: Amlodipine Besylate (Norvasc) 10 mg PO DAILY [facility] Last Admin: 12/07/18 09:33 Dose: 10 mg Documented by: Atorvastatin Calcium (Lipitor) 10 mg PO QHS [facility] Last Admin: 12/06/18 22:02 Dose: 10 mg Documented by: Heparin Sodium (Porcine) (Heparin Na) 5,000 unit SC Q8 [facility] Last Admin: 12/07/18 05:32 Dose: 5,000 unit Documented by: Sodium Chloride () 250 mls @ 15 mls/hr IV .[id number] PRN PRN Reason: SALINE FLUSH Sodium Chloride () 1,000 mls @ 75 mls/hr IV .[id number] [facility] Last Admin: 12/07/18 07:59 Dose: 75 mls/hr Documented by: Levothyroxine Sodium (Synthroid) 75 mcg PO MOTUWETHFRSA [facility] Last Admin: 12/07/18 05:32 Dose: 75 mcg Documented by: Methylprednisolone (Solu-Medrol) 40 mg IV Q8 [facility] Last Admin: 12/07/18 05:32 Dose: 40 mg Documented by: Metoprolol Succinate (Toprol Xl (Beta Pedro)) 100 mg PO DAILY [facility] Last Admin: 12/07/18 09:33 Dose: 100 mg Documented by: Nutritional Formula (Lactose Free) (Ensure Enlive) 120 ml PO 4X/DAY [facility] Last Admin: 12/07/18 09:33 Dose: 120 ml Documented by: Ondansetron HCl (Zofran) 4 mg IV Q8H PRN PRN PRN Reason: NAUSEA/VOMITING Sodium Chloride () 10 - 40 ml IV UD PRN PRN Reason: SALINE FLUSH Last Admin: 12/07/18 08:00 Dose: 10 ml Documented by: Medical Necessity - Tobacco Use Smoking Status: Former smoker Tobacco Use: Cigarettes Assessment/Plan All Active Problems (Last Updated 12/04/18 @ 14:40 by Sergio Zurita MD) Hypoxia (Acute) Patient is an 83-year-old lady admitted with progressive shortness of breath with associated active cough. Chest x-ray obtained on admission demonstrated Vascular congestion and CHF with small bilateral pleural effusions. 1. Acute on chronic hypoxic respiratory failure secondary to acute CHF. ~ Chest x-ray obtained on admission demonstrated vascular congestion with small bilateral pleural effusion management is a treatment of the underlying etiology that is congestive heart failure 2. Acute congestive heart failure with preserved ejection fraction. ~Patient has been admitted to a monitored bed, placed on strict input and output, fluid restriction Daily weights as well as IV Lasix. Echo ordered for EF assessment ?12/06/2018: Patient breathing status improved with diuresis her kidney function however worsening of patient kidney function dose of Lasix was adjusted. Echo demonstrated EF of 60% with RVSP of 53 mmHg ?12/07/2018: Lasix discontinued in view of worsening kidney function patient breathing significantly improved. 3. Acute kidney injury ~Recent kidney function initially did improve with diuresis however worsened overnight necessitating adjustment of Lasix dose in consultation being placed to nephrology. ?12/07/2018; kidney function did worsen with BUN up to 82 and creatinine 2.87. Lasix discontinued started on IV fluid. Patient was also seen in consultation by nephrology today prior 4. COPD with acute exacerbation ~did continue with aerosol treatment in addition to Solu-Medrol ?12/06/2018 improved clinically 5. Chronic hypoxic respiratory failure secondary to COPD ~patient is on home oxygen 2 L at night 6. Chronic kidney disease stage III with baseline creatinine of 1.4-1.7 ~Presented with worsening of kidney function. Consultation placed to nephrology 7. Anemia; microcytic anemia ~ Suspected to be secondary to anemia of inflammation. Monitoring H&H with plans to transfuse if hemoglobin falls below 7 or patient becomes symptomatic 8. Essential hypertension ~Patient blood pressure on admission was elevated Home medications continued added PRN hydralazine 9. Hypothyroidism ~patient is on levothyroxine home dose continued 10. Obesity with BMI of 31.9 ?Weight loss advised 12. Dyslipidemia -patient is on statin therapy, continued at home dose 11. DVT prophylaxis SC heparin Code Visit Inpatient E&M: 41183 Subs Hosp L2
--- NOTE | 2018-12-07 12:09 | PCM.PN.REN ---
Patient Problems: Active and Suspected Problems (Last Updated 12/04/18 @ 14:40 by Sergio Zurita MD) Hypoxia (Acute) Subjective: no new complaints - Physical Exam General: Alert, Oriented x3, Cooperative HEENT: Atraumatic, PERRLA, EOMI, Normocephalic Neck: Supple, No JVD, Negative Carotid Bruits Lungs: Clear to auscultation, Normal air movement Cardiovascular: Regular rate, No murmurs Abdomen: Bowel Sounds Present, Soft, Non Tender Extremities: No edema, Capillary Refill Less than 3 Seconds Skin: No rashes, No breakdown Musculoskeletal: No Tenderness to Palpation of Joints or Extremities Neurological: Cranial nerves II-XII grossly intact Psych/Mental Status: Normal Affect, Appropriate Vital Signs Temp Pulse Resp BP Pulse Ox 98.0 F 79 16 156/64 H 92 12/07/18 09:28 12/07/18 11:05 12/07/18 11:05 12/07/18 09:33 12/07/18 11:07 Oxygen Flow Rate (L/min) 2 Oxygen Delivery Method Room Air Weight: 73.981 kg Body Mass Index (BMI) 31.8 Intake and Output for Last 24 Hours 12/05/18 12/06/18 12/07/18 23:59 23:59 23:59 Intake Total 670 / 670 450 / 450 120 / 120 Output Total 750 / 750 900 / 900 Balance -80 / -80 450 / 450 -780 / -780 Laboratory Tests Past 24 Hrs 12/07/18 12/07/18 06:20 06:20 WBC 15.3 H RBC 3.02 L Hgb 9.5 L Hct 30.6 L MCV 101.3 H MCH 31.5 MCHC 31.0 L RDW Std Deviation 49.3 H RDW Coeff of Patrick 13.2 Plt Count 297 MPV 10.4 Immature Gran % (Auto) 1.200 H Neut % (Auto) 90.8 H Lymph % (Auto) 3.5 L [place] % (Auto) 4.4 Eos % (Auto) 0.0 Baso % (Auto) 0.1 Absolute Neuts (auto) 13.9 H Absolute Lymphs (auto) 0.53 L Nucleated RBC % 0 Sodium 139 Potassium 5.0 Chloride 105 Carbon Dioxide 24.0 Anion Gap 10 BUN 82 H Creatinine 2.87 H Estim Creat Clear Calc 10.48 Est GFR (MDRD) Af Amer 20 L Est GFR (MDRD) Non-Af 17 L BUN/Creatinine Ratio 28.6 H Glucose 142 H Calcium 8.5 Medical Necessity - Tobacco Use Smoking Status: Former smoker Tobacco Use: Cigarettes Assessment/Plan All Active Problems (Last Updated 12/04/18 @ 14:40 by Sergio Zurita MD) Hypoxia (Acute) NIRMALA CKD 3 reviewed prior records. She has known history of CKD with baseline creatinine around 2.0 or so. admitted with similar numbers and higher now UA is benign denies any obstructive symptoms. post void negative BP is ok Rise in creatinine is likely related to diuretics lasix has been held if cr stable of better tomorrow can be discharged will arrange follow up in office
[2018-12-07 15:28] LABS: Folates, RBC Test 893 ng/mL (>498)
[2018-12-07] MEDS: Atorvastatin Calcium 10 MG Tablet PO (21:15)
[2018-12-08] VITALS (9 sets, daily range): BP systolic 98–102; BP diastolic 61–65; PULSE 72–100; RESP 16–20; TEMP 36.5–36.9; O2SAT 96–97
--- NOTE | 2018-12-08 04:57 | EKG12_ITS ---
Test Reason : AFIB/FLUTTER Blood Pressure : / mmHG Vent. Rate : 073 BPM Atrial Rate : 292 BPM P-R Int : 000 ms QRS Dur : 082 ms QT Int : 382 ms P-R-T Axes : 267 061 066 degrees QTc Int : 420 ms Atrial flutter with variable A-V block Abnormal ECG When compared with ECG of 04-DEC-2018 15:31, MANUAL COMPARISON REQUIRED, DATA IS UNCONFIRMED Confirmed by LEOPOLDO CURRAN, CHRISTY ([id number]), science editor CONG GARCIA ([id number]) on 12/19/2018 10:38:21 AM Referred By: DR MERCADO Confirmed By:RIA MINA MD
[2018-12-08] MEDS: Levothyroxine 75 MCG Tablet PO (05:44)
[2018-12-08] MEDS: Heparin Injection (Vial) 5,000 UNIT/ML VIAL 5000 UNIT SC (05:44)
[2018-12-08] MEDS: 0.9% NaCl Peripheral Flush Adult/Peds IV (05:44)
[2018-12-08 06:32] LABS: Absolute Lymphocyte Count 0.52 X10^3/uL (0.83-4.51); Absolute Neutrophil Count 14.2 X10^3/uL (2.0-7.7); Basophil# 0.02 X10^3/uL; Basophil% 0.1 % (0-1); Eosinophil# 0.09 X10^3/uL; Eosinophils% 0.6 % (0-5); Hemoglobin 10.2 g/dL (12.0-15.0); Lymphocyte # 0.52 X10^3/ul (4.0); Lymphocyte % 3.3 % (19-41); Mean Corpuscular Volume 103.3 fL (81-99); Mean Platelet Vol. 10.9 fl (6.2-12.0); Monocyte# 0.88 X10^3/uL; Monocyte% 5.5 % (0-10); NRBC Flagged by Analyzer 0 % (0-5); Neutrophil # 14.15 X10^3/uL (2.7-7.7); Neutrophil % 88.7 % (47-70); POSITIVE DIFFERENTIAL YES; POSITIVE MORPHOLOGY YES; Platelet Count 333 K/mm3 (150-450); RBC Distribution Width CV 13.5 % (11.6-14.6); RBC Distribution Width SD 51.9 fl (35.1-43.9); Red Blood Count 3.29 M/mm3 (4.2-5.4)
[2018-12-08 06:35] LABS: Differential Indicated SCAN CRITERIA MET
[2018-12-08] MEDS: Ipratropium/Albuterol Sulfate 3 ML AMPUL.NEB INHALATION ×3 (06:57→15:04)
[2018-12-08 06:58] LABS: Anion Gap 10 (5-15); BUN 86 mg/dL (7-18); BUN/Creat Ratio 34.5 RATIO (10-20); Calcium,Total 8.2 mg/dL (8.5-10.1); Chloride 110 mmol/L (98-107); Creatinine, Serum 2.49 mg/dL (0.55-1.02); EST Glomerular Filtration Rate 20 mL/min (>60); Est Glom Filt Rate - Afr Amer 24 mL/min (>60); Estimated Creatinine Clearance 12.08 ml/min; Glucose 134 mg/dL (74-106); Potassium 4.9 mmol/L (3.5-5.1); Sodium Level 141 mmol/L (136-145)
[2018-12-08] MEDS: Metoprolol(XL)Succ 100 MG Tablet PO (08:43)
[2018-12-08] MEDS: amLODIPine 10 MG Tablet PO (08:43)
--- NOTE | 2018-12-08 10:40 | DCINST_ITS ---
- Discharge Diagnoses Current Active Problems: Current Active and Chronic Problems (Last Updated 12/04/18 @ 14:40 by Sergio Zurita MD) Stage III chronic kidney disease (Chronic) Chronic anemia (Chronic) Hypoxia (Acute) You will use the following diet at home:: Regular Discharge Activity: Return to Normal Activity Allergies/Adverse Reactions: Allergies phenobarbital Allergy (Verified 12/04/18 10:34) Hives Medications to take at Discharge Lovastatin [Mevacor] 40 mg PO DAILY 02/09/13 Metoprolol(XL)Succ [Toprol Xl (Beta Pedro)] 100 mg PO DAILY 02/09/13 levothyroxine 75 mcg tablet 75 mcg PO MOTUWETHFRSA 02/07/18 Amlodipine Besylate 10 mg PO DAILY 12/04/18 Primary Care Physician: Keely Rivera DO [Primary Care Provider] - Test Results: Test results from this visit will be discussed in further detail at your follow- up appointment, if applicable. Please Follow Up With: Keely Rivera DO When: in 5-7 days Please Follow Up With: Neo Cheek MD When: in 3-5 days Proposed Discharge Date: 12/08/18
--- NOTE | 2018-12-08 10:44 | PCM.DC.SUM ---
Discharge Date and Diagnosis - Problem List Patient Problems: Active and Suspected Problems (Last Updated 12/04/18 @ 14:40 by Sergio Zurita MD) Hypoxia (Acute) Date of Admission: 12/04/18 Date of Discharge: 12/08/18 - Primary Discharge Diagnosis Active and Suspected Problems (Last Updated 12/04/18 @ 14:40 by Sergio Zurita MD) Hypoxia (Acute) - Secondary Discharge Diagnosis Chronic Problems (Last Updated 12/04/18 @ 14:40 by eSrgio Zurita MD) Stage III chronic kidney disease (Chronic) Chronic anemia (Chronic) Vitamin D deficiency, unspecified (Chronic) Cerebral aneurysm (Chronic) Carotid stenosis (Chronic) Cataract (Chronic) Depressive disorder (Chronic) Atherosclerosis of aorta (Chronic) Memory loss (Chronic) Osteoporosis (Chronic) Obesity (Chronic) Hypothyroidism (Chronic) Hyperlipidemia (Chronic) Hypertension (Chronic) Chronic respiratory failure (Chronic) COPD (chronic obstructive pulmonary disease) (Chronic) Hospital Course and Treatment Imaging Results: Clinical Impression(s) from Imaging Studies Chest X-Ray 12/04/18 10:58 IMPRESSION: Vascular congestion and CHF with small bilateral pleural effusions. Electronically Signed: Edi Joy, at 12:31 EDT , Service support , Operations: None Summary of Care Provided: The patient is a 83 year old F [] Patient is an 83-year-old lady admitted with progressive shortness of breath with associated active cough. Chest x-ray obtained on admission demonstrated Vascular congestion and CHF with small bilateral pleural effusions. 1. Acute on chronic hypoxic respiratory failure secondary to acute CHF. ~ Chest x-ray obtained on admission demonstrated vascular congestion with small bilateral pleural effusion management is a treatment of the underlying etiology that is congestive heart failure 2. Acute congestive heart failure with preserved ejection fraction. ~Patient has been admitted to a monitored bed, placed on strict input and output, fluid restriction Daily weights as well as IV Lasix. Echo ordered for EF assessment Echo demonstrated EF of 60% with RVSP of 53 mmHg patient was initially managed with Lasix which was later discontinued in view of worsening kidney function. 3. Acute kidney injury ~Recent kidney function initially did improve with diuresis however worsened overnight necessitating adjustment of Lasix dose in consultation being placed to nephrology. ?12/07/2018; kidney function did worsen with BUN up to 82 and creatinine 2.87. Lasix discontinued started on IV fluid. Patient was also seen in consultation by nephrology. ~ Patient kidney function was improving at the time of discharge and creatinine was 2.49. Patient is scheduled to follow-up with nephrology as outpatient with repeat labs to be performed as outpatient 4. COPD with acute exacerbation ~did continue with aerosol treatment in addition to Solu-Medrol ?12/06/2018 improved clinically 5. Chronic hypoxic respiratory failure secondary to COPD ~patient is on home oxygen 2 L at night 6. Chronic kidney disease stage III with baseline creatinine of 1.4-1.7 ~Presented with worsening of kidney function. Consultation placed to nephrology 7. Anemia; microcytic anemia ~ Suspected to be secondary to anemia of inflammation. Monitoring H&H with plans to transfuse if hemoglobin falls below 7 or patient becomes symptomatic 8. Essential hypertension ~Patient blood pressure on admission was elevated Home medications continued added PRN hydralazine 9. Hypothyroidism ~patient is on levothyroxine home dose continued 10. Obesity with BMI of 31.9 ?Weight loss advised 12. Dyslipidemia -patient is on statin therapy, continued at home dose 11. DVT prophylaxis SC heparin Patient Problems: Active and Suspected Problems (Last Updated 12/04/18 @ 14:40 by Sergio Zurita MD) Hypoxia (Acute) Objective: GENERAL: cooperative HEENT: Atraumatic; EYES; Anicteric, NECK; supple, normal thyroid, RESPIRATORY: Diminished to auscultation CARDIOVASCULAR: Regular S1 S2, GI: soft, non-tender, normoactive bowel sounds, : No Renal angle tenderness; NEURO: Awake; no lateralizing signs. SKIN: No Rash PSYCH; Normal affect - Physical Exam Vital Signs Temp Pulse Resp BP Pulse Ox 98.4 F 96 18 102/61 96 12/08/18 09:25 12/08/18 09:25 12/08/18 09:25 12/08/18 09:25 12/08/18 09:25 Oxygen Flow Rate (L/min) 2 Oxygen Delivery Method Room Air Weight: 77.1 kg Body Mass Index (BMI) 31.8 Intake and Output for Last 24 Hours 12/06/18 12/07/18 12/08/18 23:59 23:59 23:59 Intake Total 450 / 450 1638.75 / 1638.75 100 / 100 Output Total 1000 / 1000 Balance 450 / 450 638.75 / 638.75 100 / 100 Laboratory Tests Past 24 Hrs 12/04/18 12/08/18 12/08/18 22:28 05:50 05:50 WBC 16.0 H RBC 3.29 L Hgb 10.2 L Hct 34.0 L MCV 103.3 H MCH 31.0 MCHC 30.0 L RDW Std Deviation 51.9 H RDW Coeff of Patrick 13.5 Plt Count 333 MPV 10.9 Immature Gran % (Auto) 1.800 H Neut % (Auto) 88.7 H Lymph % (Auto) 3.3 L [place] % (Auto) 5.5 Eos % (Auto) 0.6 Baso % (Auto) 0.1 Absolute Neuts (auto) 14.2 H Absolute Lymphs (auto) 0.52 L Nucleated RBC % 0 Sodium 141 Potassium 4.9 Chloride 110 H Carbon Dioxide 21.0 Anion Gap 10 BUN 86 H Creatinine 2.49 H Estim Creat Clear Calc 12.08 Est GFR (MDRD) Af Amer 24 L Est GFR (MDRD) Non-Af 20 L BUN/Creatinine Ratio 34.5 H Glucose 134 H Calcium 8.2 L RBC Folate Hemolysate 268.0 RBC Folate 893 Hematocrit 30.0 L Discharge Diet: No Restrictions Discharge Activity: Return to Normal Activity Home Medications: Medications to take at Discharge Lovastatin [Mevacor] 40 mg PO DAILY 02/09/13 Metoprolol(XL)Succ [Toprol Xl (Beta Pedro)] 100 mg PO DAILY 02/09/13 levothyroxine 75 mcg tablet 75 mcg PO MOTUWETHFRSA 02/07/18 Amlodipine Besylate 10 mg PO DAILY 12/04/18 Primary Care Physician: Keely Rivera DO [Primary Care Provider] - Please Follow Up With: Keely Rivera DO When: in 5-7 days Please Follow Up With: Neo Cheek MD When: in 3-5 days Disposition: Home Minutes spent on discharge:: 35 Patient Condition:: Stable Medical Necessity - Tobacco Use Smoking Status: Former smoker Tobacco Use: Cigarettes Meaningful Use Info Meaningful Use Diagnoses (Choose all that apply): CHF - CHF CAMELIA/ARB ordered at discharge?: Yes Reason CAMELIA/ARB not ordered?: Worsening renal disease Documented LVEF (%): 60 Code Visit Inpatient E&M: 45123 Disch Hosp
--- NOTE | 2018-12-08 10:54 | CASEMGMT ---
This RN CM to room and pt's WW was delivered yesterday from [facility] [place]. Pt/family still state no concerns with pt going home at time of discharge and voice no need for any further resources at this time. SStloretta CARLISLE CM
--- NOTE | 2018-12-08 12:15 | PHA.DC.MR ---
Pharmacy Service has performed discharge medication reconciliation for this patient. The patient's discharge medication list was reviewed for discrepancies and discrepancies were resolved. Home Medications Lovastatin [Mevacor] 40 mg PO DAILY 02/09/13 Metoprolol(XL)Succ [Toprol Xl (Beta Pedro)] 100 mg PO DAILY 02/09/13 levothyroxine 75 mcg tablet 75 mcg PO SCARLETUWETHFRSA 02/07/18 Amlodipine Besylate 10 mg PO DAILY 12/04/18
--- NOTE | 2018-12-11 14:55 | CASEMGMT ---
MAYLIN EID Discharge Follow-Up Phone Call. Lace:???12?Strata: 4 Discharge Date:?12/08/18 Adm Dx:??Resp Failure, COPD Exac, Probable CHF Call to pt to inquire about how?she?has been doing since being discharged from the hospital.??Pt's daughter, Antonia, answered and spoke to this MAYLIN EID. Antonia states her mother is not very good. She states that her feet are swollen to the point she is unable to put her shoes on and has been having some SOB. She states that her mother has been using her walker but is weaker than she had been and has been having difficulty getting on/off the commode. Antonia states she has called into Dr Rivera's office and has an appt today @ 4 PM and they are getting ready to leave for the appt soon. MAYLIN EID advised Antonia to discuss all of these concerns with Dr Rivera today and made aware that Dr Rivera may want pt to return to the hospital once she sees her. Antonia thanked MAYLIN EID for the call. Rob JAMESON RN, CM
== END 2018-12-08 15:51 | disposition home or self-care (01) | DRG 291 ==
LOC: ED 11:08 → PCU 14:40
PROVIDERS: Admitting Provider Hospitalist; Emergency Provider Emergency Medicine; Family Provider Internal Medicine; PCP Internal Medicine; Visit Provider Internal Medicine
DX: I13.0 Hypertensive heart and chronic kidney disease with heart failure and stage 1 through stage 4 chronic kidney disease, or unspecified chronic kidney disease (principal); J96.21 Acute and chronic respiratory failure with hypoxia; I50.31 Acute diastolic (congestive) heart failure; J44.1 Chronic obstructive pulmonary disease with (acute) exacerbation; N17.9 Acute kidney failure, unspecified; Z99.81 Dependence on supplemental oxygen; N18.3 Chronic kidney disease, stage 3 (moderate); E87.5 Hyperkalemia; E03.9 Hypothyroidism, unspecified; E66.9 Obesity, unspecified; E78.5 Hyperlipidemia, unspecified; Z68.31 Body mass index [BMI] 31.0-31.9, adult; D50.9 Iron deficiency anemia, unspecified; M81.0 Age-related osteoporosis without current pathological fracture; Z87.891 Personal history of nicotine dependence
CPT/HCPCS: 36415; 71046; 80048; 81001; 82607; 82728; 82747; 83540; 83550; 83735; 83880; 84132; 84443; 84484; 85014; 85025; 85610; 93005; 93306; 94640; 94667; 94668; 97110; 97162; 97166; 97530; 97535; 97802; 99285; J7030; Q9957; A4216; J1940

== ENCOUNTER → 2018-12-13 10:45 | Outpatient (CLI) | payer MEDICARE, OTHER, SELFPAY ==
[2018-12-04 15:07] VITALS: BMI 31.8
[2018-12-13 11:11] LABS: Anion Gap 8 (5-15); BUN 70 mg/dL (7-18); BUN/Creat Ratio 32.7 RATIO (10-20); Calcium,Total 8.7 mg/dL (8.5-10.1); Chloride 106 mmol/L (98-107); Creatinine, Serum 2.14 mg/dL (0.55-1.02); EST Glomerular Filtration Rate 23 mL/min (>60); Est Glom Filt Rate - Afr Amer 28 mL/min (>60); Glucose 83 mg/dL (74-106); Potassium 4.6 mmol/L (3.5-5.1); Sodium Level 140 mmol/L (136-145)
== END ==
PROVIDERS: Family Provider Internal Medicine; PCP Internal Medicine; Referring Provider Internal Medicine; Visit Provider Internal Medicine
DX: Z51.81 Encounter for therapeutic drug level monitoring (principal)
CPT/HCPCS: 80048